=== PATIENT | female | born 1945 | race Caucasian/White ===

== ENCOUNTER 2019-09-07 10:42 | Outpatient (CLI) | payer OTHER, SELFPAY ==
[2019-09-07 11:03] LABS: Basophils Absolute Auto 0.2 K/mm3 (0.0-0.1); Basophils Percent Auto 2.5 % (0.2-1.2); Eosinophils Absolute Auto 0.5 K/mm3 (0-0.3); Eosinophils Percent Auto 5.3 % (0-4.4); Hematocrit 49.7 % (37.0-47.0); Hemoglobin 14.7 g/dL (12.0-15.0); Immature Granulocyte Absolute 0.02 K/mm3 (0.00-0.031); Immature Granulocyte Percent A 0.2 % (0-0.5); Lymphocytes Absolute Auto 1.92 K/mm3 (0.9-3.2); Lymphocytes Percent Auto 22.8 % (18.3-44.2); Mean Corpuscular HGB Conc 29.6 g/dl (32-36); Mean Corpuscular Hemoglobin 25.2 pg (26-34); Mean Corpuscular Volume 85.2 fl (80-100); Mean Platelet Volume 10.2 fl (7.4-10.4); Monocytes Absolute Auto 0.5 K/mm3 (0.1-0.6); Monocytes Percent Auto 5.8 % (2.6-8.5); Neutrophils Absolute Auto 5.3 K/mm3 (1.3-6.7); Neutrophils Percent Auto 63.4 % (45.5-73.1); Platelet Count Result 499 k/mm3 (150-375); Red Blood Count 5.83 M/mm3 (4.2-5.4); Red Cell Distribution Width 19.9 % (11.5-14.5); White Blood Count 8.4 K/mm3 (4.5-10.0)
[2019-09-07 11:06] LABS: Blood Urea Nitrogen 22 mg/dL (8-26); Carbon Dioxide 29 mmol/L (22-30); Chloride 100 mmol/L (98-109); Estimated Glomerular Filt Rate 30; Glucose 101 mg/dL (70-105); Potassium 4.5 mmol/L (3.5-4.9); Sodium 139 mmol/L (138-146)
[2019-09-07 11:08] LABS: Ovalocytes 1+ (NORMAL); Platelet Estimate Increased (Adequate); Poikilocytosis 1+ (NORMAL)
== END 2019-09-07 10:43 | disposition home or self-care (01) ==
LOC: ANHLAB 10:45
PROVIDERS: PCP Family Medicine; Visit Provider Internal Medicine Hematology & Oncology
DX: D45 Polycythemia vera (principal)
CPT/HCPCS: 36415; 80048; 85025

== ENCOUNTER 2019-12-21 00:59 | Outpatient (CLI) | payer OTHER, SELFPAY ==
[2019-12-21 19:35] LABS: SARS-CoV-2 RNA PCR Negative
== END 2019-12-21 01:00 | disposition home or self-care (01) ==
LOC: ANHCOVIDDT 00:59
PROVIDERS: PCP Family Medicine; Visit Provider Internal Medicine Gastroenterology
DX: Z01.812 Encounter for preprocedural laboratory examination (principal); Z11.59 Encounter for screening for other viral diseases
CPT/HCPCS: 87635; C9803; U0003

== ENCOUNTER 2019-12-23 01:38 | Day surgery (SDC) | payer OTHER, SELFPAY ==
[2019-12-20 09:39] VITALS: BMI 23.3
--- NOTE | 2019-12-23 08:28 | WPDANESEPPF ---
Anes - Initial Pre Proc Eval Procedure: Operation Date: 12/23/19 09:00 Proposed Procedures p Screening Colonoscopy - Avila Ortega MD Date/Time: 12/23/19 08:28 Surgeon: Avila Ortega MD Pre Op Diagnosis: neoplasm screening Patient Data Age: 74 Gender: F Height: 5 ft 1 in Weight: 56 kg Allergies Allergy/AdvReac Type Severity Reaction Status Date / Time codeine Allergy Unknown Hives Verified 12/23/19 08:33 Penicillins Allergy Unknown Hives Verified 12/23/19 08:33 Sulfa (Sulfonamide Allergy Unknown Confusion Verified 12/23/19 08:33 Antibiotics) TYLENOL WITH CODEINE Allergy Intermediate Hives Uncoded 12/23/19 08:33 Home Medications Medication Instructions Recorded Confirmed Type albuterol sulfate 90 mcg/actuation 1 puff INHALATION Q4H PRN 05/18/19 12/20/19 History aerosol inhaler atorvastatin 20 mg tablet 20 mg PO DAILY 05/18/19 12/20/19 History fluticasone 250 mcg-salmeterol 50 1 inhalation INHALATION BID 05/18/19 12/20/19 History mcg/dose blistr powdr for inhalation hydroxyurea 500 mg capsule 500 mg PO DAILY 05/18/19 12/20/19 History ipratropium 0.5 mg-albuterol 3 mg 3 ml INHALATION QID PRN 05/18/19 12/20/19 History (2.5 mg base)/3 mL nebulization soln promethazine 25 mg tablet 25 mg PO Q6H PRN 05/18/19 12/20/19 History betamethasone dipropionate 0.05 % 1 applic TOPICAL DAILY PRN #15 gm 05/21/19 12/20/19 Rx topical cream amlodipine 10 mg tablet 10 mg PO DAILY #90 tablet 07/22/19 12/20/19 Rx folic acid 1 mg tablet See Rx Instructions .ROUTE 11/22/19 12/20/19 Rx .COMPLEX #90 tablet levothyroxine 75 mcg tablet 75 mcg PO DAILY #90 tablet 11/23/19 12/20/19 Rx ondansetron 4 mg disintegrating 4 mg PO Q6H PRN #12 tablet 11/26/19 12/20/19 Rx tablet fenofibrate 160 mg tablet 160 mg PO DAILY #90 tablet 11/29/19 12/20/19 Rx lisinopril 40 mg tablet 40 mg PO DAILY #90 tablet 11/29/19 12/20/19 Rx aspirin 325 mg PO DAILY 12/20/19 12/20/19 History Patient hx anesthesia problems: none Family hx anesthesia problems: none PMFSH Past Medical History Medical History (Updated 12/23/19 @ 08:28 by Butch Friedman MD) Acquired hypothyroidism CKD (chronic kidney disease) COPD (chronic obstructive pulmonary disease) HTN (hypertension) Family History Family History (Updated 01/13/14 @ 07:13 by DOCTOR UNKNOWN) Mother Carcinoma of colon Father Family history of lung cancer Social History Social History Smoking status: Never smoker Second hand tobacco smoke exposure: Yes Alcohol intake: never Gender identity (if verbalized by the patient): Female Anes - Eval Final PreProcedure Day of Procedure 12/23/19 08:28 Patient weight: normal Heart: regular rate and rhythm Lungs: clear to auscultation Airway: Mallampati scale class II Neurological: alert and oriented Last oral intake: >/= 8 hours ASA classification: III Emergent: no Anesthetic plan: proceed Anesthesia type and monitoring: general GIVS and standard monitoring Informed Consent: The patient's anesthetic plan and its attendant risks and benefits were discussed with the patient/family/POA. Questions were solicited and answers provided to the satisfaction of the patient/family/POA.
[2019-12-23] MEDS: LACTATED RINGERS 1,000 ML 150 ML IV CONT (08:32)
[2019-12-23 08:34] VITALS: BP 151/79; PULSE 74; RESP 16; TEMP 36.4; O2SAT 98; BMI 23.2
--- NOTE | 2019-12-23 08:48 | PM.HPGS ---
History of Present Illness History of Present Illness Consent: Risks, benefits, and alternatives have been discussed and questions answered. Patient agrees to proceed with procedure. Chief complaint: neoplasm screening Narrative: Viviana Das is a 74 year old W female referred for screening colonoscopy secondary history of colonic polyps. Colonoscopy 5 years ago. No family history of colon polyps or colon cancer. [facility] Past Medical History Medical History Acquired hypothyroidism CKD (chronic kidney disease) COPD (chronic obstructive pulmonary disease) HTN (hypertension) Family History Family History Mother Carcinoma of colon Father Family history of lung cancer Social History Social History Smoking status: Never smoker Second hand tobacco smoke exposure: Yes Alcohol intake: never Gender identity (if verbalized by the patient): Female Meds Home Medications and Allergies Home Medications Medication Instructions Recorded Confirmed Type albuterol sulfate 90 mcg/actuation 1 puff INHALATION Q4H PRN 05/18/19 12/20/19 History aerosol inhaler atorvastatin 20 mg tablet 20 mg PO DAILY 05/18/19 12/20/19 History fluticasone 250 mcg-salmeterol 50 1 inhalation INHALATION BID 05/18/19 12/20/19 History mcg/dose blistr powdr for inhalation hydroxyurea 500 mg capsule 500 mg PO DAILY 05/18/19 12/20/19 History ipratropium 0.5 mg-albuterol 3 mg 3 ml INHALATION QID PRN 05/18/19 12/20/19 History (2.5 mg base)/3 mL nebulization soln promethazine 25 mg tablet 25 mg PO Q6H PRN 05/18/19 12/20/19 History betamethasone dipropionate 0.05 % 1 applic TOPICAL DAILY PRN #15 gm 05/21/19 12/20/19 Rx topical cream amlodipine 10 mg tablet 10 mg PO DAILY #90 tablet 07/22/19 12/20/19 Rx folic acid 1 mg tablet See Rx Instructions .ROUTE 11/22/19 12/20/19 Rx .COMPLEX #90 tablet levothyroxine 75 mcg tablet 75 mcg PO DAILY #90 tablet 11/23/19 12/20/19 Rx ondansetron 4 mg disintegrating 4 mg PO Q6H PRN #12 tablet 11/26/19 12/20/19 Rx tablet fenofibrate 160 mg tablet 160 mg PO DAILY #90 tablet 11/29/19 12/20/19 Rx lisinopril 40 mg tablet 40 mg PO DAILY #90 tablet 11/29/19 12/20/19 Rx aspirin 325 mg PO DAILY 12/20/19 12/20/19 History Allergies Allergy/AdvReac Type Severity Reaction Status Date / Time codeine Allergy Unknown Hives Verified 12/23/19 08:33 Penicillins Allergy Unknown Hives Verified 12/23/19 08:33 Sulfa (Sulfonamide Allergy Unknown Confusion Verified 12/23/19 08:33 Antibiotics) TYLENOL WITH CODEINE Allergy Intermediate Hives Uncoded 12/23/19 08:33 Vital Signs Vital Signs - 24 hr 12/23/19 08:34 Temperature 36.4 C L Pulse Rate 74 Respiratory Rate 16 Blood Pressure 151/79 H Pulse Oximetry 98 Exam Const: Orientation/consciousness: patient oriented x3 Resp: Auscultation: clear to auscultation bilaterally Cardio: Rate: regular rate Rhythm: regular rhythm Heart sounds: no murmurs GI: GI Palp: Yes Soft to palpation, No Tenderness to palpation present (GI), Yes No hepatosplenomegaly present and No Palpable mass present Auscultation: normal bowel sounds Neuro: General: patient oriented x3 and no focal motor deficits Extrem: General: no pedal edema Assessment and Plan Additional Plan Screening colonoscopy secondary history of colonic polyps
[2019-12-23 09:40] VITALS: BP 104/56; PULSE 67; RESP 19; O2SAT 97
[2019-12-23 09:50] VITALS: BP 102/58; PULSE 85; O2SAT 98
[2019-12-23 10:00] VITALS: BP 124/70; PULSE 68; RESP 20; O2SAT 99
== END 2019-12-23 10:20 | disposition home or self-care (01) ==
PROVIDERS: PCP Family Medicine; Visit Provider Internal Medicine Gastroenterology
PROC: 0DJD8ZZ Inspection of Lower Intestinal Tract, Via Natural or Artificial Opening Endoscopic (ICD-10-PCS; CPT 45378; principal; 2019-12-23 09:00)
DX: Z12.11 Encounter for screening for malignant neoplasm of colon (principal); D12.0 Benign neoplasm of cecum; K57.30 Diverticulosis of large intestine without perforation or abscess without bleeding; K64.8 Other hemorrhoids; I12.9 Hypertensive chronic kidney disease with stage 1 through stage 4 chronic kidney disease, or unspecified chronic kidney disease; N18.9 Chronic kidney disease, unspecified; J44.9 Chronic obstructive pulmonary disease, unspecified; E03.9 Hypothyroidism, unspecified; Z79.82 Long term (current) use of aspirin
CPT/HCPCS: 45380; 87635; 88305; C9803; J2704; J7120; U0003

== ENCOUNTER → 2020-01-13 10:08 | Outpatient (CLI) | payer OTHER, SELFPAY ==
--- NOTE | ~2020-01-13 | MM_ITS ---
EXAMINATION: MM screening [facility] BI w efra HISTORY: Screening mammogram TECHNIQUE: Craniocaudal and mediolateral oblique 3-D tomosynthesis images were obtained and synthetic 2-D images were generated. CAD analysis was submitted and interpreted. COMPARISON: 10/16/2018, 10/20/2017, 10/10/2017, 09/19/2016 BREAST PARENCHYMAL COMPOSITION: There are scattered areas of fibroglandular density. FINDINGS: There is no evidence of suspicious mass, calcification, or architectural distortion to sugg est malignancy in either breast. There has been no suspicious interval change. IMPRESSION: 1. No mammographic evidence of malignancy. 2. Recommend routine screening mammography in one year. BI-RADS Category 1: Negative Reviewed, dictated and finalized at location A.
== END ==
PROVIDERS: PCP Family Medicine; Visit Provider Family Medicine
DX: Z12.31 Encounter for screening mammogram for malignant neoplasm of breast (principal)
CPT/HCPCS: 77063; 77067

== ENCOUNTER → 2020-06-19 11:40 | Outpatient (CLI) | payer OTHER, SELFPAY ==
--- NOTE | ~2020-06-19 | CT_ITS ---
EXAMINATION: CT brain wo con EXAM DATE: 06/19/2020 11:57 INDICATION: Left-sided sharp headaches. Stabbing sensation. TECHNIQUE: Spiral CT of the head was performed without contrast. Axial, coronal and sagittal images were reviewed. The dose-length product (DLP) for this examination was 524.62 mGy-cm. The exposure w as tailored according to patient size, and iterative reconstruction (ASIR) was used as additional dos e reduction technique. There is no prior study for comparison. FINDINGS: There is no acute intraparenchymal hemorrhage. No evidence of intraparenchymal brain mass lesion. No evidence of acute infarction. Please note that initial head CT has limited sensitivity f or small or acute infarctions. There is mild periventricular and subcortical hypodensity, nonspecific but probably related to small vessel ischemic disease. There is mild prominence of the sulci and v entricles related to cerebral atrophy. There is intracranial carotid arteriosclerosis. There are n o extra-axial collections. There is no mass effect or midline shift. The orbits are unremarkable. Soft tissue is unremarkable. The visualized sinuses and mastoid air cells are well aerated. IMPRESSION: 1. No acute intracranial findings. 2. Chronic age related findings. Reviewed, dictated and finalized at location B. 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
== END ==
PROVIDERS: PCP Family Medicine; Visit Provider Physician Assistant
DX: R51.9 Headache, unspecified (principal); I67.2 Cerebral atherosclerosis
CPT/HCPCS: 70450

== ENCOUNTER 2020-07-06 11:06 | Outpatient (CLI) | payer OTHER, SELFPAY ==
[2020-07-06 11:35] LABS: Basophils Absolute Auto 0.2 K/mm3 (0.0-0.1); Basophils Percent Auto 1.7 % (0.2-1.2); Eosinophils Absolute Auto 0.3 K/mm3 (0-0.3); Eosinophils Percent Auto 3.5 % (0-4.4); Hematocrit 47.8 % (37.0-47.0); Hemoglobin 14.5 g/dL (12.0-15.0); Immature Granulocyte Absolute 0.03 K/mm3 (0.00-0.031); Immature Granulocyte Percent A 0.3 % (0-0.5); Lymphocytes Absolute Auto 1.84 K/mm3 (0.9-3.2); Lymphocytes Percent Auto 19.7 % (18.3-44.2); Mean Corpuscular HGB Conc 30.3 g/dl (32-36); Mean Corpuscular Hemoglobin 26.6 pg (26-34); Mean Corpuscular Volume 87.7 fl (80-100); Monocytes Absolute Auto 0.6 K/mm3 (0.1-0.6); Monocytes Percent Auto 6.1 % (2.6-8.5); Neutrophils Absolute Auto 6.4 K/mm3 (1.3-6.7); Neutrophils Percent Auto 68.7 % (45.5-73.1); Platelet Count Result 473 k/mm3 (150-375); Red Blood Count 5.45 M/mm3 (4.2-5.4); Red Cell Distribution Width 20.1 % (11.5-14.5); White Blood Count 9.3 K/mm3 (4.5-10.0)
[2020-07-06 11:50] LABS: Alanine Aminotransferase 14 U/L (4-35); Albumin Level 3.6 g/dL (3.5-5.1); Alkaline Phosphatase 45 U/L (38-126); Anion Gap 1 mmol/L (8-16); Aspartate Amino Transferase 31 U/L (14-36); Bilirubin,Total 0.4 mg/dL (0.2-1.3); Blood Urea Nitrogen 20 mg/dL (7-17); Calcium 9.2 mg/dL (8.4-10.2); Carbon Dioxide 34 mmol/L (22-30); Chloride 105 mmol/L (98-107); Estimated Glomerular Filt Rate 37; Glucose 106 mg/dL (65-105); Potassium 4.8 mmol/L (3.4-5.0); Sodium 140 mmol/L (137-145)
== END 2020-07-06 11:07 | disposition home or self-care (01) ==
LOC: ANHLAB 11:09
PROVIDERS: PCP Family Medicine; Visit Provider Physician Assistant
DX: N18.9 Chronic kidney disease, unspecified (principal); R10.9 Unspecified abdominal pain; R19.7 Diarrhea, unspecified
CPT/HCPCS: 36415; 80053; 85025

== ENCOUNTER 2021-02-16 11:59 | Outpatient (CLI) | payer OTHER, SELFPAY ==
[2021-02-16 12:55] LABS: Anion Gap 8 mmol/L (8-16); Blood Urea Nitrogen 21 mg/dL (7-17); Calcium 10.2 mg/dL (8.4-10.2); Carbon Dioxide 30 mmol/L (22-30); Chloride 100 mmol/L (98-107); Estimated Glomerular Filt Rate 49; Glucose 111 mg/dL (65-110); Sodium 138 mmol/L (137-145)
== END 2021-02-16 12:00 | disposition home or self-care (01) ==
PROVIDERS: PCP Family Medicine; Visit Provider Physician Assistant
DX: E87.5 Hyperkalemia (principal)
CPT/HCPCS: 36415; 80048

== ENCOUNTER → 2021-02-22 07:14 | Outpatient (CLI) | payer OTHER, SELFPAY ==
--- NOTE | ~2021-02-22 | MM_ITS ---
EXAMINATION: MM screening [facility] BI w efra HISTORY: Screening mammogram TECHNIQUE: Craniocaudal and mediolateral oblique 3-D tomosynthesis images were obtained and synthetic 2-D images were generated. CAD analysis was submitted and interpreted. COMPARISON: 01/13/2020, 10/16/2018 BREAST PARENCHYMAL COMPOSITION: There are scattered areas of fibroglandular density. FINDINGS: There is no evidence of suspicious mass, calcification, or architectural distortion to sugg est malignancy in either breast. There has been no suspicious interval change. IMPRESSION: 1. No mammographic evidence of malignancy. 2. Recommend routine screening mammography in one year. BI-RADS Category 1: Negative Reviewed, dictated and finalized at location A.
== END ==
PROVIDERS: PCP Family Medicine; Visit Provider Family Medicine
DX: Z12.31 Encounter for screening mammogram for malignant neoplasm of breast (principal)
CPT/HCPCS: 77063; 77067

== ENCOUNTER → 2021-06-26 01:51 | Outpatient (CLI) | payer OTHER, SELFPAY ==
[2021-06-26 17:21] LABS: SARS-CoV-2 RNA PCR Negative
== END ==
PROVIDERS: PCP Family Medicine; Visit Provider Nurse Practitioner Family
DX: Z20.822 Contact with and (suspected) exposure to COVID-19 (principal); R05.9 Cough, unspecified
CPT/HCPCS: C9803; U0003; U0005

== ENCOUNTER 2021-11-13 09:26 | Outpatient (CLI) | payer OTHER, SELFPAY ==
--- NOTE | ~2021-11-13 | XR_ITS ---
EXAMINATION: XR wrist RT 2V INDICATION: Right wrist pain TECHNIQUE: Two views of the right wrist are obtained. COMPARISON: None FINDINGS: There is moderate osteoarthritis of the triscaphe and first carpometacarpal joints. No frac ture is identified. The soft tissues are unremarkable. IMPRESSION: 1. Osteoarthritis without acute osseous abnormality. Reviewed, dictated and finalized at location A.
--- NOTE | ~2021-11-13 | XR_ITS ---
EXAMINATION: XR hand RT min 3V INDICATION: Right hand pain TECHNIQUE: Three views of the right hand are obtained. COMPARISON: None available FINDINGS: There is moderate osteoarthritis of the triscaphe and first carpometacarpal joints. There i s also moderate osteoarthritis at the first carpometacarpal joint as well as in multiple interphalang eal joints. No fracture is identified. The soft tissues are unremarkable. IMPRESSION: 1. Polyarticular osteoarthritis. Reviewed, dictated and finalized at location A.
== END 2021-11-13 09:27 | disposition home or self-care (01) ==
LOC: ANHIMG 09:30
PROVIDERS: PCP Family Medicine; Visit Provider Nurse Practitioner Family
DX: M19.041 Primary osteoarthritis, right hand (principal); M18.11 Unilateral primary osteoarthritis of first carpometacarpal joint, right hand; M19.031 Primary osteoarthritis, right wrist
CPT/HCPCS: 73100; 73130

== ENCOUNTER 2022-02-05 15:17 | Emergency (ER) | payer OTHER, SELFPAY ==
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
[2022-02-05 15:39] VITALS: BP 134/75; PULSE 94; RESP 20; TEMP 36.4; O2SAT 97
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
== END 2022-02-05 18:54 | disposition home or self-care (01) ==
PROVIDERS: Emergency Provider Nurse Practitioner Family; PCP Family Medicine
DX: S02.31XA Fracture of orbital floor, right side, initial encounter for closed fracture (principal); S00.11XA Contusion of right eyelid and periocular area, initial encounter; E03.9 Hypothyroidism, unspecified; I12.9 Hypertensive chronic kidney disease with stage 1 through stage 4 chronic kidney disease, or unspecified chronic kidney disease; N18.9 Chronic kidney disease, unspecified; J44.9 Chronic obstructive pulmonary disease, unspecified; Y04.0XXA Assault by unarmed brawl or fight, initial encounter
CPT/HCPCS: 70450; 70486; 99284

== ENCOUNTER → 2022-05-09 09:58 | Outpatient (CLI) | payer OTHER, SELFPAY ==
--- NOTE | ~2022-05-09 | MM_ITS ---
EXAMINATION: MM screening [facility] BI w efra HISTORY: Screening TECHNIQUE: Craniocaudal and mediolateral oblique 3-D tomosynthesis images were obtained and synthetic 2-D images were generated. CAD analysis was submitted and interpreted. COMPARISON: Comparison to multiple prior studies sequentially, with oldest reviewed study dated 08/2016. BREAST PARENCHYMAL COMPOSITION: Breast composed of scattered areas of fibroglandular density FINDINGS: There is no evidence of suspicious mass, calcification, or architectural distortion to sugg est malignancy in either breast. There has been no suspicious interval change. IMPRESSION: 1. No mammographic evidence of malignancy. 2. Recommend routine screening mammography in one year. BI-RADS Category 1: Negative Reviewed, dictated and finalized at location A. MAKER
--- NOTE | ~2022-05-09 | DEXA_ITS ---
Bone Density Report Name: PASHA KELLY Age: 76 Sex: Female Ethnicity: White Date of : 1945 Indication: osteopenia; height loss; cancer; postmenopausal Referring Provider: LAUREL MONTGOMERY Study: Bone densitometry was performed. Exam Date: May 09, 2022 Accession number: [id number] Bone Density: Region BMD T-score Z-score Classification AP Spine (L1-L4) 0.873 -1.6 0.8 Osteopenia Femoral Neck (Left) 0.700 -1.3 0.8 Osteopenia Total Hip (Left) 0.773 -1.4 0.4 Osteopenia Femoral Neck (Right) 0.618 -2.1 0.0 Osteopenia Total Hip (Right) 0.777 -1.4 0.4 Osteopenia Total Hip Mean 0.775 -1.4 0.4 Osteopenia World Health Organization criteria for BMD impression classify patients as: Normal (T-score at or above -1.0), Osteopenia (T-score between -1.0 and -2.5), or Osteoporosis (T-score at or below -2.5). 10-year Fracture Risk(1): Major Osteoporotic Fracture 13% Hip Fracture 3.5% Reported Risk Factors: [place] (), Neck BMD=0.618, BMI=24.0 (1) FRAX(R) Version 3.08. Fracture probability calculated for an untreated patient. Fracture probability may be lower if the patient has received treatment. Previous Exams: Region Exam Age BMD T-score BMD Change BMD Change Date g/cm2 vs Baseline vs Previous AP Spine(L1-L4) 05/09/2022 76 0.873 -1.6 0.048* -0.016 05/28/2019 73 0.889 -1.4 0.064* 0.064* 11/20/2016 70 0.824 -2.0 Total Hip(Left) 05/09/2022 76 0.773 -1.4 -0.011 0.008 05/28/2019 73 0.765 -1.5 -0.019 -0.019 11/20/2016 70 0.784 -1.3 Total Hip(Right) 05/09/2022 76 0.777 -1.4 -0.020 0.013 05/28/2019 73 0.764 -1.5 -0.032* -0.032* 11/20/2016 70 0.796 -1.2 *Denotes significance at 95% confidence level, LSC for AP Spine = 0.022 g/cm2, LSC for Total Hip = 0.027 g/cm2 Clinical Information Provided by Patient: Has used the following medications: Vitamin D, hydroxxurea (cancer medication) Has the following medical conditions: Cancer, high red blood cell count-takes cancer meds for this, COPD Patient maximum height was 63 Menopause Age: 37 Does not regularly consume dairy products Drinks caffeinated beverages Onset of menses at age 14 Number of children 4 Impression: The patient has low bone mass, based on the Right Femoral Neck T-score. The patient has an estimated ten-year risk of hip fra
== END ==
PROVIDERS: PCP Family Medicine; Visit Provider Physician Assistant
DX: Z12.31 Encounter for screening mammogram for malignant neoplasm of breast (principal); Z78.0 Asymptomatic menopausal state; M85.89 Other specified disorders of bone density and structure, multiple sites
CPT/HCPCS: 77063; 77067; 77080

== ENCOUNTER → 2022-06-20 11:27 | Outpatient (CLI) | payer OTHER, SELFPAY ==
--- NOTE | ~2022-06-20 | XR_ITS ---
EXAMINATION: XR chest 2V DATE: 06/20/2022 11:43 INDICATION: Cough, unspecified TECHNIQUE: PA and lateral views of the chest are obtained. COMPARISON: None available FINDINGS: There is a nodular opacity of the right lung base. No pleural effusion or pneumothorax. The cardiomediastinal silhouette is normal. There is moderate thoracic spondylosis. IMPRESSION: 1. Nodular opacity of the right lung base which may be infectious or inflammatory however malignancy could've a similar appearance. Follow-up with CT of the chest is recommended. Reviewed, dictated and finalized at location L. T MONITOR IMPRESSION: 1. Nodular opacity of the right lung base which may be infectious or inflammato ry however malignancy could've a similar appearance. Follow-up with CT of the c hest is recommended.
== END ==
PROVIDERS: PCP Family Medicine; Visit Provider Physician Assistant
DX: R05.9 Cough, unspecified (principal); R91.1 Solitary pulmonary nodule
CPT/HCPCS: 71046

== ENCOUNTER 2022-06-25 10:14 | Outpatient (CLI) | payer OTHER, SELFPAY ==
[2022-06-25 11:15] LABS: Influenza A QL RT-PCR Negative (Negative); Influenza B QL RT-PCR Negative (Negative); SARS-CoV-2 RNA PCR Negative
== END 2022-06-25 10:15 | disposition home or self-care (01) ==
LOC: ANHLAB 10:15
PROVIDERS: PCP Family Medicine; Visit Provider Physician Assistant
DX: R53.83 Other fatigue (principal); R51.9 Headache, unspecified; R11.0 Nausea; Z20.822 Contact with and (suspected) exposure to COVID-19
CPT/HCPCS: 87636

== ENCOUNTER 2022-07-05 09:48 | Outpatient (CLI) | payer OTHER, SELFPAY ==
--- NOTE | ~2022-07-05 | CT_ITS ---
EXAMINATION: CT diagnostic chest wo con DATE: 07/05/2022 10:12 INDICATION: Chest x-ray abnormality follow-up TECHNIQUE: Computed tomography (CT) of the chest was performed without intravenous contrast. The dose -length product was 137.29 mGy-cm. Automated exposure control and iterative reconstruction technique were employed. COMPARISON: Chest x-ray dated 06/20/2022 FINDINGS: Heart size normal. No significant pleural or pericardial effusion. Mild atherosclerosis. Th ere is esophageal wall thickening, suspicious for esophagitis. Gallstones. No thoracic lymphadenopath y. There are subtle infiltrates of the right lung including areas of groundglass opacification, tree- in-bud configuration and atelectasis. There is a 3 mm lingular nodule, image 66, likely benign. No pn eumothorax. No endobronchial lesions. Moderate thoracic spondylosis. No focal lytic or blastic lesion s. IMPRESSION: 1. Patchy infiltrates of the right lung, most likely infectious. 2: Diffuse thickening of the esophagus, suspicious for esophagitis. 3: Lingular nodule measuring 3 mm, likely benign. Consider follow-up CT chest and 12 months. 4: Cholelithiasis. Reviewed, dictated and finalized at location A. 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 Patchy infiltrates of the right lung, most likely infectious. 2: Diffuse thickening of the esophagus, suspicious for esophagitis. 3: Lingular nodule measuring 3 mm, likely benign. Consider follow-up CT chest a nd 12 months. 4: Cholelithiasis.
== END 2022-07-05 09:49 | disposition home or self-care (01) ==
PROVIDERS: PCP Family Medicine; Visit Provider Physician Assistant
DX: J44.9 Chronic obstructive pulmonary disease, unspecified (principal); K80.20 Calculus of gallbladder without cholecystitis without obstruction; R91.1 Solitary pulmonary nodule; R91.8 Other nonspecific abnormal finding of lung field
CPT/HCPCS: 71250; 99195

== ENCOUNTER 2022-08-16 08:26 | Outpatient (CLI) | payer OTHER, SELFPAY ==
--- NOTE | ~2022-08-16 | CT_ITS ---
CT Scan of the Chest without Contrast: Clinical Indication: Abnormal CT scan Technique: Contiguous sections were acquired throughout the chest without intravenous contrast. Dose reduction technique was used on this scan by utilizing automated exposure control and iterative recon struction technique. The dose-length product (DLP) was 123.99 mGy-cm. COMPARISON: 07/05/2022 Findings: There is no evidence of any significant mediastinal, hilar or axillary lymphadenopathy. There are mil d atherosclerotic calcifications of the aorta. There is no evidence of pleural or pericardial effusion. Scattered focal areas of tree-in-bud opacity or other subcentimeter nodularity, as well as focal area s of probable scarring, are unchanged from prior exam. There are most notable in the right upper lobe (axial images 26 and 27), in the left lower lobe (axial images [id number]), and right lower lobe (axial im age 72). Images through the upper abdomen reveal calcified gallstone. Impression: Scattered focal pulmonary abnormalities, as noted above, which are stable from prior exam. Findings p robably reflect chronic postinflammatory change/scarring and/or chronic small airways infectious proc ess. Reviewed, dictated and finalized at location M. Impression: Scattered focal pulmonary abnormalities, as noted above, which are stable from prior exam. Findings probably reflect chronic postinflammatory change/scarring and/or chronic small airways infectious process.
== END 2022-08-16 08:27 | disposition home or self-care (01) ==
PROVIDERS: PCP Family Medicine; Visit Provider Physician Assistant
DX: R93.89 Abnormal findings on diagnostic imaging of other specified body structures (principal); R05.9 Cough, unspecified
CPT/HCPCS: 71250

== ENCOUNTER 2023-03-20 09:31 | Outpatient (CLI) | payer OTHER, SELFPAY | END 2023-03-20 09:32 | disposition home or self-care (01) | LOC: ANHLAB 09:36 | PROVIDERS: PCP Family Medicine; Visit Provider Physician Assistant | DX: E03.9 Hypothyroidism, unspecified (principal) | CPT/HCPCS: 36415; 84443 ==

== ENCOUNTER 2023-06-19 11:17 | Outpatient (CLI) | payer OTHER, SELFPAY ==
--- NOTE | ~2023-06-19 | MM_ITS ---
EXAMINATION: MM screening [facility] BI w efra HISTORY: Screening TECHNIQUE: Craniocaudal and mediolateral oblique 3-D tomosynthesis images were obtained and synthetic 2-D images were generated. CAD analysis was submitted and interpreted. COMPARISON: Comparison to multiple prior studies sequentially, with oldest reviewed study dated 10/10. BREAST PARENCHYMAL COMPOSITION: Not dense: There are scattered areas of fibroglandular density. FINDINGS: There is no evidence of suspicious mass, calcification, or architectural distortion to sugg est malignancy in either breast. There has been no suspicious interval change. IMPRESSION: 1. No mammographic evidence of malignancy. 2. Recommend routine screening mammography in one year. BI-RADS Category 1: Negative Reviewed, dictated and finalized at location A. 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
== END 2023-06-19 11:18 ==
LOC: MICIMG 11:18
PROVIDERS: PCP Physician Assistant; Visit Provider Physician Assistant
DX: Z12.31 Encounter for screening mammogram for malignant neoplasm of breast (principal)
CPT/HCPCS: 77063; 77067

== ENCOUNTER 2023-07-15 15:53 | Outpatient (CLI) | payer OTHER, SELFPAY ==
--- NOTE | ~2023-07-15 | CT_ITS ---
CT Scan of the Chest without Contrast: Clinical Indication: Nonspecific abnormal finding of lung field Technique: Contiguous sections were acquired throughout the chest without intravenous contrast. Dose reduction technique was used on this scan by utilizing automated exposure control and iterative recon struction technique. The dose-length product (DLP) was 125.54 mGy-cm. COMPARISON: 08/16/2022 Findings: There is no evidence of any significant mediastinal, hilar or axillary lymphadenopathy. The mediastin al soft tissues appear normal. There is no evidence of pleural or pericardial effusion. Stable subcentimeter nodules noted in the left upper lobe and left lower lobe. Images through the upper abdomen reveal calcified gallstone. Impression: Stable subcentimeter pulmonary nodules in the left lung. Reviewed, dictated and finalized at [facility]. S S[facility]ER [employer]T Impression: Stable subcentimeter pulmonary nodules in the left lung.
== END 2023-07-15 15:54 | disposition home or self-care (01) ==
PROVIDERS: PCP Family Medicine; Visit Provider Physician Assistant
DX: R91.8 Other nonspecific abnormal finding of lung field (principal)
CPT/HCPCS: 71250

== ENCOUNTER 2023-08-23 10:08 | Emergency (ER) | payer OTHER, SELFPAY ==
[2023-08-23] VITALS (11 sets, daily range): BP systolic 129–151; BP diastolic 71–81; PULSE 81–89; RESP 14–23; TEMP 36.2–36.7; O2SAT 96–100
--- NOTE | ~2023-08-23 | CT_ITS ---
EXAMINATION: CT abdomen pelvis wo con DATE: 08/23/2023 11:00 INDICATION: Intermittent abdominal pain. Nausea and vomiting. Acute kidney injury. TECHNIQUE: Computed tomography (CT) of the abdomen and pelvis was performed without intravenous contr ast. Automated exposure control and iterative reconstruction technique were employed. Exam dose: 199 .53 mGy-cm total exam DLP. COMPARISON: No prior examinations available from PACS for comparison. FINDINGS: The lung bases are clear of infiltrate or consolidation. Normal heart size. No pericardial or pleural effusion. Small sliding hiatal hernia. There is an approximately 9.5 mm stone in the dependent aspect of the gallbladder. No pericholecystic fluid or fat stranding. No bile duct or pancreatic duct dilatation. No hepatic, splenic, pancreatic, and adrenal or renal space-occupying mass lesion is evident on this limited noncontrast examination. There is a pinpoint nonobstructing right renal calculus. There is atherosclerotic calcification but normal caliber of the abdominal aorta. 12 x 14 mm left ext ernal iliac lymph node; otherwise no intraperitoneal or retroperitoneal or pelvic mass lesion or angeal opathy or ascites. The uterus, adnexal areas and urinary bladder are unremarkable. There are numerous colonic diverticula, primarily involving the sigmoid:; No CT evidence of diverticu litis. No bowel obstruction, bowel wall thickening, pneumatosis or intraperitoneal free air. Transitional lumbosacral vertebral. Multilevel degenerative disc disease of the lumbar spine. No suspicious osteolytic or osteoblastic lesions are noted. IMPRESSION: Small sliding hiatal hernia Cholelithiasis Diverticulosis of the colon; no evidence of diverticulitis Reviewed, dictated and finalized at [facility]. Reviewed, dictated and finalized at location A.
[2023-08-23] MEDS: ONDANSETRON INJ 4 MG/2 ML VIAL IV PUSH (11:07)
[2023-08-23] MEDS: SODIUM CHLORIDE 0.9% IV 1,000 ML 999 ML IV CONT (11:07)
[2023-08-23 11:16] LABS: Basophils Absolute Auto 0.1 K/mm3 (0.0-0.1); Basophils Percent Auto 1.7 % (0.2-1.2); Eosinophils Absolute Auto 0.1 K/mm3 (0-0.3); Eosinophils Percent Auto 1.5 % (0-4.4); Hematocrit 48.8 % (37.0-47.0); Hemoglobin 15.4 g/dL (12.0-15.0); Immature Granulocyte Absolute 0.05 K/mm3 (0.00-0.031); Immature Granulocyte Percent A 0.6 % (0-0.5); Lymphocytes Absolute Auto 1.71 K/mm3 (0.9-3.2); Mean Corpuscular HGB Conc 31.6 g/dl (32-36); Mean Corpuscular Hemoglobin 32.6 pg (26-34); Mean Corpuscular Volume 103.4 fl (80-100); Mean Platelet Volume 12.5 fl (7.4-10.4); Monocytes Absolute Auto 0.3 K/mm3 (0.1-0.6); Monocytes Percent Auto 3.9 % (2.6-8.5); Neutrophils Absolute Auto 5.8 K/mm3 (1.3-6.7); Neutrophils Percent Auto 71.3 % (45.5-73.1); Platelet Count Result 253 k/mm3 (150-375); Red Blood Count 4.72 M/mm3 (4.2-5.4); Red Cell Distribution Width 16.5 % (11.5-14.5); White Blood Count 8.1 K/mm3 (4.5-10.0)
--- NOTE | 2023-08-23 11:17 | ECG_ITS ---
Measurements Intervals [place] Rate: 89 P: 63 CT: 157 QRS: -34 QRSD: 120 T: 72 QT: 342 Avg RR: 669 QTc: 389 QTcB: 418 QTcF: 391 Interpretive Statements SINUS RHYTHM WITH OCCASIONAL VENTRICULAR PREMATURE COMPLEXES WITH OCCASIONAL SUPRAVENTRICULAR PREMATURE COMPLEXES MARKED LEFT AXIS DEVIATION [QRS AXIS < -30] ANTEROSEPTAL MYOCARDIAL INFARCTION, OF INDETERMINATE AGE [40+ ms Q WAVE IN V1-V4] ABNORMAL ECG SEE SCANNED COPY FOR SIGNATURE MTDD
--- NOTE | 2023-08-23 11:27 | ED.GENADULT ---
HPI - General Adult General Chief complaint: Recheck/Abnormal Lab/Rx <Valentin Shepherd PA-C - Last Filed: 08/23/23 17:33> Stated complaint: ABN LABS <Valentin Shepherd PA-C - Last Filed: 08/23/23 17:33> Time Seen by Provider: 08/23/23 10:29 <Valentin Shepherd PA-C - Last Filed: 08/23/23 17:33> Source: patient <NGOC Sewell Last Filed: 08/23/23 17:33> Mode of arrival: ambulatory <NGOC Sewell Last Filed: 08/23/23 17:33> Limitations: no limitations <NGOC Sewell Last Filed: 08/23/23 17:33> History of Present Illness HPI narrative: This is a 77-year-old female with PMH of COPD, HTN, hypothyroid, CKD who presents to the ED with chief complaint of abnormal lab draw from PCP this week. Patient states that she has been dealing with intermittent nausea and vomiting for the past several weeks. She reports it is very difficult to keep any food down. This prompted her PCP did order labs and imaging. Reports that she got the labs done and was told to come to the ER for significant dehydration and impaired kidney function. Patient states that she has some abdominal pain when vomiting but otherwise has minimal abdominal pain. Denies GI bleeding symptoms, fevers, chills, diarrhea, urinary symptoms, back pain. <Valentin Shepherd PA-C - Last Filed: 08/23/23 17:33> Related Data Home medications: Home Medications Medication Instructions Recorded Confirmed ipratropium 0.5 mg-albuterol 3 mg 3 ml inhalation QID PRN Shortness 05/18/19 08/21/23 (2.5 mg base)/3 mL nebulization Of Breath soln aspirin 325 mg tablet 325 mg PO DAILY 12/20/19 08/21/23 hydroxyurea 500 mg capsule 500 mg PO .ever other day 08/06/22 08/21/23 <NGOC Sewell Last Filed: 08/23/23 17:33> Allergies/adverse reactions: Allergies Allergy/AdvReac Type Severity Reaction Status Date / Time codeine Allergy Unknown Hives Verified 08/23/23 10:26 Penicillins Allergy Unknown Hives Verified 08/23/23 10:26 Sulfa (Sulfonamide Allergy Unknown Confusion Verified 08/23/23 10:26 Antibiotics) guaifenesin [From Mucinex] AdvReac Intermediate Dizziness Verified 08/23/23 10:26 TYLENOL WITH CODEINE Allergy Intermediate Hives Uncoded 08/21/23 14:53 <Valentin Shepherd PA-C - Last Filed: 08/23/23 17:33> Review of Systems Review of Systems: All systems as dictated in HPI <NGOC Sewell Last Filed: 08/23/23 17:33> [facility] Past Medical History Medical History: Medical History Acquired hypothyroidism CKD (chronic kidney disease) COPD (chronic obstructive pulmonary disease) HTN (hypertension) <NGOC Sewell Last Filed: 08/23/23 17:33> Family History Family History: Family History Mother Carcinoma of colon Father Family history of lung cancer <Valentin Shepherd PA-C - Last Filed: 08/23/23 17:33> Social History Social History: Social History Social History: Single Smoking status: Never smoker Second hand tobacco smoke exposure: Yes Alcohol intake: never Substance use: never Substance use type: does not use Living arrangements: alone Occupation/Education: occupation Gender identity (if verbalized by the patient): Female Sexual Orientation (if Verbalized by the Patient): Straight or Heterosexual Spiritual care concerns: No <NGOC Sewell Last Filed: 08/23/23 17:33> Exam Narrative: GENERAL: Appears dehydrated. No acute distress. HEAD: Normocephalic, atraumatic. EYES: PERRLA and EOMI. ENT: Nares clear, no rhinorrhea or epistaxis. Mucous membranes moist. Oropharynx without tonsillar hypertrophy exudate or other lesions. NECK: Supple. No adenopathy or masses. CHEST: No respiratory distress. Clear to auscultation. No wheezes rales or rhonchi HEART: Regular rate and rhythm
[2023-08-23 11:55] LABS: Alanine Aminotransferase 12 U/L (6-35); Albumin Level 3.2 g/dL (3.5-5.1); Alkaline Phosphatase 49 U/L (38-126); Anion Gap 0 mmol/L (4-12); Aspartate Amino Transferase 26 U/L (14-36); Bilirubin,Total 0.6 mg/dL (0.2-1.3); Blood Urea Nitrogen 30 mg/dL (7-17); Calcium 11.9 mg/dL (8.4-10.2); Carbon Dioxide 31 mmol/L (22-30); Chloride 106 mmol/L (98-107); Estimated CRCL calculation 14 ml/min; Estimated Glomerular Filt Rate 20; Glucose 96 mg/dL (65-110); Lipase 58 U/L (23-300); Phosphorus 2.8 mg/dL (2.5-4.5); Potassium 3.8 mmol/L (3.4-5.0); Sodium 137 mmol/L (137-145)
[2023-08-23 12:09] LABS: Magnesium 1.8 mg/dL (1.6-2.3)
[2023-08-23 13:04] LABS: Anion Gap 3 mmol/L (4-12); Blood Urea Nitrogen 32 mg/dL (7-17); Calcium 12.6 mg/dL (8.4-10.2); Carbon Dioxide 30 mmol/L (22-30); Chloride 105 mmol/L (98-107); Estimated CRCL calculation 14 ml/min; Estimated Glomerular Filt Rate 20; Glucose 95 mg/dL (65-110); Sodium 138 mmol/L (137-145)
--- NOTE | 2023-08-23 13:18 | PC.NURSE ---
PO challenge tolerated well.
[2023-08-26 10:00] LABS: Ionized Calcium 6.2 mg/dL (4.7-5.5)
[2023-09-09 15:28] LABS: Parathyroid Hormone Related Pr 12 pg/mL (11-20)
== END 2023-08-23 14:34 | disposition home or self-care (01) ==
PROVIDERS: Emergency Provider Physician Assistant; PCP Family Medicine
DX: E86.0 Dehydration (principal); E83.52 Hypercalcemia; J44.9 Chronic obstructive pulmonary disease, unspecified; I12.9 Hypertensive chronic kidney disease with stage 1 through stage 4 chronic kidney disease, or unspecified chronic kidney disease; N18.9 Chronic kidney disease, unspecified; E03.9 Hypothyroidism, unspecified; Z79.82 Long term (current) use of aspirin
CPT/HCPCS: 36415; 74176; 80048; 80053; 82330; 83519; 83690; 83735; 84100; 85025; 93005; 96361; 96374; 99284; J2405; J7030

== ENCOUNTER 2023-08-26 00:53 | Day surgery (SDC) | payer OTHER, SELFPAY ==
[2023-08-21 14:57] VITALS: BMI 22.3
--- NOTE | 2023-08-22 09:58 | SUR.PREOP ---
Patient called regarding upcoming procedure. Reviewed preop instructions, appointment times, and procedure prep.
[2023-08-26 07:43] VITALS: BP 135/75; PULSE 80; RESP 16; TEMP 36.1; O2SAT 97
[2023-08-26] MEDS: ONDANSETRON INJ 4 MG/2 ML VIAL IV PUSH (07:59)
[2023-08-26] MEDS: LACTATED RINGERS 1,000 ML 150 ML IV CONT (08:00)
--- NOTE | 2023-08-26 08:15 | WPDANESEPPF ---
Anes - Initial Pre Proc Eval Procedure: Operation Date: 08/26/23 09:00 Proposed Procedures p Esophagogastroduodenoscopy - Estevan Malik MD Date/Time: 08/26/23 08:15 Surgeon: Estevan Malik MD Pre Op Diagnosis: Dysphagia, GERD, abd. distension, N&V Patient Data Age: 77 Gender: F Height: 1.55 m Weight: 53.4 kg Last Vital Signs Temp 97 F L 08/26/23 07:43 Pulse 80 08/26/23 07:43 Resp 16 08/26/23 07:43 BP 135/75 08/26/23 07:43 Pulse Ox 97 08/26/23 07:43 O2 Del Method Room Air 08/26/23 07:43 Allergies Allergy/AdvReac Type Severity Reaction Status Date / Time codeine Allergy Unknown Hives Verified 08/26/23 07:41 Penicillins Allergy Unknown Hives Verified 08/26/23 07:41 Sulfa (Sulfonamide Allergy Unknown Confusion Verified 08/26/23 07:41 Antibiotics) guaifenesin [From Mucinex] AdvReac Intermediate Dizziness Verified 08/26/23 07:41 TYLENOL WITH CODEINE Allergy Intermediate Hives Uncoded 08/26/23 07:41 Home Medications Medication Instructions Recorded Confirmed Type ipratropium 0.5 mg-albuterol 3 mg 3 ml inhalation QID PRN Shortness 05/18/19 08/21/23 History (2.5 mg base)/3 mL nebulization Of Breath soln aspirin 325 mg tablet 325 mg PO DAILY 12/20/19 08/21/23 History betamethasone dipropionate 0.05 % 1 applic topical DAILY PRN rash 02/02/21 08/21/23 Rx topical cream #15 grams albuterol sulfate 90 mcg/actuation 1 puff inhalation Q4H PRN 08/06/22 08/21/23 Rx aerosol inhaler Shortness Of Breath #8.5 grams hydroxyurea 500 mg capsule 500 mg PO .ever other day 08/06/22 08/21/23 History levothyroxine 75 mcg tablet See Rx Instructions .Route 12/09/22 08/26/23 Rx .COMPLEX #90 tabs fenofibrate 160 mg tablet See Rx Instructions .Route 01/16/23 08/21/23 Rx .COMPLEX #90 tabs lisinopril 40 mg tablet See Rx Instructions .Route 02/06/23 08/21/23 Rx .COMPLEX #90 tabs amlodipine 10 mg tablet See Rx Instructions .Route 03/03/23 08/21/23 Rx .COMPLEX #90 tabs atorvastatin 20 mg tablet (Lipitor) 20 mg PO DAILY #90 tabs 06/03/23 08/21/23 Rx fluticasone 250 mcg-salmeterol 50 See Rx Instructions .Route 07/22/23 08/21/23 Rx mcg/dose blistr powdr for .COMPLEX #60 ea inhalation (Wixela Inhub) folic acid 1 mg tablet See Rx Instructions .Route 07/25/23 08/21/23 Rx .COMPLEX #90 tabs omeprazole 40 mg capsule,delayed See Rx Instructions .Route 08/19/23 08/21/23 Rx release .COMPLEX #90 caps ondansetron 4 mg disintegrating 4 mg PO Q6H PRN nausea and 08/19/23 08/21/23 Rx tablet vomiting #30 tabs ondansetron 4 mg disintegrating 4 mg PO Q8H PRN nausea and 08/23/23 Rx tablet vomiting #10 tabs Patient hx anesthesia problems: none Family hx anesthesia problems: none Results Review: All pre-operative results and documents have been reviewed as part of the pre-operative evaluation. [facility] Past Medical History Medical History Acquired hypothyroidism CKD (chronic kidney disease) COPD (chronic obstructive pulmonary disease) HTN (hypertension) Family History Family History Mother Carcinoma of colon Father Family history of lung cancer Social History Social History Social History: Single Smoking status: Never smoker Second hand tobacco smoke exposure: Yes Alcohol intake: never Substance use: never Substance use type: does not use Living arrangements: alone Occupation/Education: occupation Gender identity (if verbalized by the patient): Female Sexual Orientation (if Verbalized by the Patient): Straight or Heterosexual Spiritual care concerns: No Anes - Eval Final PreProcedure Day of Procedure 08/26/23 08:15 Patient weight: normal Heart: regular rate and rhythm Lungs: clear to auscultation Airway: Mallampati scale class II Neurological: alert and or
--- NOTE | 2023-08-26 08:37 | PM.HPGS ---
History of Present Illness History of Present Illness Consent: Risks, benefits, and alternatives have been discussed and questions answered. Patient agrees to proceed with procedure. Chief complaint: Dysphagia, GERD, abd. distension, N&V Narrative: Viviana Das is a 77 year old female with intermittent nausea and vomiting since July, recent blood workt noted worsening renal failure with hypercalcemia, also h/o polycythemia. CT scan showed cholelithiasis, small HH, never had egd. Review of Systems Review of Systems: All systems reviewed & are unremarkable except as noted in HPI and below PMFSH Past Medical History Medical History (Updated 08/26/23 @ 08:38 by Estevan Malik MD) Acquired hypothyroidism CKD (chronic kidney disease) COPD (chronic obstructive pulmonary disease) HTN (hypertension) Nausea and vomiting in adult Family History Family History Mother Carcinoma of colon Father Family history of lung cancer Social History Social History Social History: Single Smoking status: Never smoker Second hand tobacco smoke exposure: Yes Alcohol intake: never Substance use: never Substance use type: does not use Living arrangements: alone Occupation/Education: occupation Gender identity (if verbalized by the patient): Female Sexual Orientation (if Verbalized by the Patient): Straight or Heterosexual Spiritual care concerns: No Meds Home Medications and Allergies Home Medications Medication Instructions Recorded Confirmed Type ipratropium 0.5 mg-albuterol 3 mg 3 ml inhalation QID PRN Shortness 05/18/19 08/21/23 History (2.5 mg base)/3 mL nebulization Of Breath soln aspirin 325 mg tablet 325 mg PO DAILY 12/20/19 08/21/23 History betamethasone dipropionate 0.05 % 1 applic topical DAILY PRN rash 02/02/21 08/21/23 Rx topical cream #15 grams albuterol sulfate 90 mcg/actuation 1 puff inhalation Q4H PRN 08/06/22 08/21/23 Rx aerosol inhaler Shortness Of Breath #8.5 grams hydroxyurea 500 mg capsule 500 mg PO .ever other day 08/06/22 08/21/23 History levothyroxine 75 mcg tablet See Rx Instructions .Route 12/09/22 08/26/23 Rx .COMPLEX #90 tabs fenofibrate 160 mg tablet See Rx Instructions .Route 01/16/23 08/21/23 Rx .COMPLEX #90 tabs lisinopril 40 mg tablet See Rx Instructions .Route 02/06/23 08/21/23 Rx .COMPLEX #90 tabs amlodipine 10 mg tablet See Rx Instructions .Route 03/03/23 08/21/23 Rx .COMPLEX #90 tabs atorvastatin 20 mg tablet (Lipitor) 20 mg PO DAILY #90 tabs 06/03/23 08/21/23 Rx fluticasone 250 mcg-salmeterol 50 See Rx Instructions .Route 07/22/23 08/21/23 Rx mcg/dose blistr powdr for .COMPLEX #60 ea inhalation (Wixela Inhub) folic acid 1 mg tablet See Rx Instructions .Route 07/25/23 08/21/23 Rx .COMPLEX #90 tabs omeprazole 40 mg capsule,delayed See Rx Instructions .Route 08/19/23 08/21/23 Rx release .COMPLEX #90 caps ondansetron 4 mg disintegrating 4 mg PO Q6H PRN nausea and 08/19/23 08/21/23 Rx tablet vomiting #30 tabs ondansetron 4 mg disintegrating 4 mg PO Q8H PRN nausea and 08/23/23 Rx tablet vomiting #10 tabs Allergies Allergy/AdvReac Type Severity Reaction Status Date / Time codeine Allergy Unknown Hives Verified 08/26/23 07:41 Penicillins Allergy Unknown Hives Verified 08/26/23 07:41 Sulfa (Sulfonamide Allergy Unknown Confusion Verified 08/26/23 07:41 Antibiotics) guaifenesin [From Mucinex] AdvReac Intermediate Dizziness Verified 08/26/23 07:41 TYLENOL WITH CODEINE Allergy Intermediate Hives Uncoded 08/26/23 07:41 Vital Signs Vital Signs - 24 hr 08/26/23 07:43 Temperature 97 F L Pulse Rate 80 Respiratory Rate 16 Blood Pressure 135/75 Pulse Oximetry 97 Oxygen Delivery Room Air Exam Const: General: comfortable and no acute distress HENMT: Face/Nose/Sinus: Normal nares present Eyes:
[2023-08-26 08:54] VITALS: BP 115/71; PULSE 66; RESP 16; O2SAT 98
[2023-08-26 09:04] VITALS: BP 110/61; PULSE 62; RESP 16; O2SAT 100
[2023-08-26 09:14] VITALS: BP 127/66; PULSE 57; RESP 16; O2SAT 100
== END 2023-08-26 09:20 | disposition home or self-care (01) ==
PROVIDERS: PCP Family Medicine; Referring Provider Physician Assistant; Visit Provider Internal Medicine Gastroenterology
PROC: 0DJ08ZZ Inspection of Upper Intestinal Tract, Via Natural or Artificial Opening Endoscopic (ICD-10-PCS; CPT 43235; principal; 2023-08-26 09:00)
DX: K21.00 Gastro-esophageal reflux disease with esophagitis, without bleeding (principal); K22.2 Esophageal obstruction; K29.70 Gastritis, unspecified, without bleeding; K44.9 Diaphragmatic hernia without obstruction or gangrene; I12.9 Hypertensive chronic kidney disease with stage 1 through stage 4 chronic kidney disease, or unspecified chronic kidney disease; N18.30 Chronic kidney disease, stage 3 unspecified; D75.1 Secondary polycythemia; E83.52 Hypercalcemia; E03.9 Hypothyroidism, unspecified; Z79.51 Long term (current) use of inhaled steroids
CPT/HCPCS: 43249; 43239; 88305; C1726; J2405; J2704; J7120

== ENCOUNTER 2023-09-04 14:31 | Outpatient (CLI) | payer OTHER, SELFPAY ==
[2023-09-04 14:49] LABS: Basophils Absolute Auto 0.1 K/mm3 (0.0-0.1); Eosinophils Absolute Auto 0.2 K/mm3 (0-0.3); Eosinophils Percent Auto 2.3 % (0-4.4); Hematocrit 47.1 % (37.0-47.0); Hemoglobin 14.9 g/dL (12.0-15.0); Immature Granulocyte Absolute 0.04 K/mm3 (0.00-0.031); Immature Granulocyte Percent A 0.6 % (0-0.5); Lymphocytes Percent Auto 24.4 % (18.3-44.2); Mean Corpuscular HGB Conc 31.6 g/dl (32-36); Mean Corpuscular Hemoglobin 32.7 pg (26-34); Mean Corpuscular Volume 103.3 fl (80-100); Mean Platelet Volume 10.5 fl (7.4-10.4); Monocytes Absolute Auto 0.4 K/mm3 (0.1-0.6); Monocytes Percent Auto 5.3 % (2.6-8.5); Neutrophils Absolute Auto 4.6 K/mm3 (1.3-6.7); Neutrophils Percent Auto 65.4 % (45.5-73.1); Platelet Count Result 366 k/mm3 (150-375); Red Blood Count 4.56 M/mm3 (4.2-5.4); Red Cell Distribution Width 17.4 % (11.5-14.5)
[2023-09-04 16:21] LABS: Alanine Aminotransferase 15 U/L (6-35); Albumin Level 3.9 g/dL (3.5-5.1); Alkaline Phosphatase 55 U/L (38-126); Anion Gap 3 mmol/L (4-12); Aspartate Amino Transferase 34 U/L (14-36); Bilirubin,Total 0.6 mg/dL (0.2-1.3); Blood Urea Nitrogen 23 mg/dL (7-17); Calcium 10.4 mg/dL (8.4-10.2); Carbon Dioxide 30 mmol/L (22-30); Chloride 103 mmol/L (98-107); Estimated Glomerular Filt Rate 37; Glucose 99 mg/dL (65-110); Potassium 4.4 mmol/L (3.4-5.0); Sodium 136 mmol/L (137-145)
== END 2023-09-04 14:32 | disposition home or self-care (01) ==
LOC: ANHLAB 14:34
PROVIDERS: PCP Family Medicine; Visit Provider Physician Assistant
DX: E83.52 Hypercalcemia (principal); E86.0 Dehydration; N17.9 Acute kidney failure, unspecified; R11.2 Nausea with vomiting, unspecified; I10 Essential (primary) hypertension
CPT/HCPCS: 36415; 80053; 85025

== ENCOUNTER 2023-09-11 07:57 | Outpatient (CLI) | payer OTHER, SELFPAY ==
--- NOTE | ~2023-09-11 | NM_ITS ---
EXAMINATION: NM parathyroid imaging w spect DATE: 09/11/2023 12:39 INDICATION: Hypercalcemia TECHNIQUE: 19.1 mCi Tc99m sestamibi (Cardiolite) was administered by intravenous route. Anterior imag es of the neck were obtained at 10 minutes and 2 hours. Additional 2 hour delayed SPECT images were o btained and reconstructed in axial, sagittal and coronal planes. COMPARISON: None. FINDINGS/IMPRESSION: There is no focus of persistent activity in the area of the thyroid or mediastinum to suggest parathy roid adenoma. Reviewed, dictated and finalized at location A.
== END 2023-09-11 07:58 | disposition home or self-care (01) ==
PROVIDERS: PCP Family Medicine; Visit Provider Physician Assistant
DX: E83.52 Hypercalcemia (principal)
CPT/HCPCS: 78071; A9500

== ENCOUNTER 2023-10-08 14:57 | Outpatient (CLI) | payer OTHER, SELFPAY ==
--- NOTE | ~2023-10-08 | US_ITS ---
EXAMINATION: US renal BI DATE: 10/08/2023 15:56 INDICATION: Stage IIIB chronic kidney disease TECHNIQUE: Multiple ultrasound grayscale images of the kidneys were obtained. COMPARISON: CT dated 08/23/2023 FINDINGS: The right kidney measures 8.8 x 4.2 x 4.9 cm. The left kidney measures 8.9 x 4.2 x 4.3 cm. There is b ilateral increased renal cortical echogenicity consistent with medical renal disease. 1.3 cm cyst at the lower pole of the right kidney. There is no hydronephrosis in either kidney. No stones identifie d. The bladder is normal. IMPRESSION: 1. Bilateral increased renal cortical echogenicity consistent with medical renal disease. No hydrone phrosis. Reviewed, dictated and finalized at location A. IMPRESSION: 1. Bilateral increased renal cortical echogenicity consistent with medical norman al disease. No hydronephrosis.
== END 2023-10-08 14:58 | disposition home or self-care (01) ==
PROVIDERS: PCP Family Medicine; Visit Provider Internal Medicine Nephrology
DX: E83.52 Hypercalcemia (principal); N18.32 Chronic kidney disease, stage 3b
CPT/HCPCS: 76775

== ENCOUNTER 2023-12-02 01:56 | Day surgery (SDC) | payer OTHER, SELFPAY ==
[2023-11-17 14:19] VITALS: BMI 21.5
[2023-12-02 07:44] VITALS: BP 131/92; PULSE 84; RESP 16; TEMP 36.3; O2SAT 98; BMI 22.0
[2023-12-02] MEDS: LACTATED RINGERS 1,000 ML 150 ML IV CONT (07:53)
--- NOTE | 2023-12-02 07:55 | WPDANESEPPF ---
Anes - Initial Pre Proc Eval Procedure: Operation Date: 12/02/23 09:00 Proposed Procedures p Esophagogastroduodenoscopy - Estevan Malik MD Date/Time: 12/02/23 07:55 Surgeon: Estevan Malik MD Pre Op Diagnosis: Esophagitis without bleeding, Esophageal obstructi Patient Data Age: 78 Gender: F Height: 1.57 m Weight: 54.6 kg Last Vital Signs Temp 97.3 F L 12/02/23 07:44 Pulse 84 12/02/23 07:44 Resp 16 12/02/23 07:44 BP 131/92 H 12/02/23 07:44 Pulse Ox 98 12/02/23 07:44 O2 Del Method Room Air 12/02/23 07:44 Allergies Allergy/AdvReac Type Severity Reaction Status Date / Time codeine Allergy Unknown Hives Verified 12/02/23 07:43 Penicillins Allergy Unknown Hives Verified 12/02/23 07:43 Sulfa (Sulfonamide Allergy Unknown Confusion Verified 12/02/23 07:43 Antibiotics) guaifenesin [From Mucinex] AdvReac Intermediate Dizziness Verified 12/02/23 07:43 TYLENOL WITH CODEINE Allergy Intermediate Hives Uncoded 12/02/23 07:43 Home Medications Medication Instructions Recorded Confirmed Type aspirin 325 mg tablet 325 mg PO DAILY 12/20/19 12/02/23 History albuterol sulfate 90 mcg/actuation 1 puff inhalation Q4H PRN 08/06/22 12/02/23 Rx aerosol inhaler Shortness Of Breath #8.5 grams hydroxyurea 500 mg capsule 500 mg PO .ever other day 08/06/22 12/02/23 History fluticasone 250 mcg-salmeterol 50 See Rx Instructions .Route 07/22/23 12/02/23 Rx mcg/dose blistr powdr for .COMPLEX #60 ea inhalation (Joce Bryan) folic acid 1 mg tablet See Rx Instructions .Route 07/25/23 12/02/23 Rx .COMPLEX #90 tabs omeprazole 40 mg capsule,delayed 40 mg PO BID 3 months #180 caps 08/26/23 12/02/23 Rx release levothyroxine 75 mcg tablet See Rx Instructions .Route 08/29/23 12/02/23 Rx .COMPLEX #90 tabs ondansetron 4 mg disintegrating 4 mg PO Q6H PRN nausea and 09/18/23 12/02/23 Rx tablet vomiting #30 tabs fenofibrate 160 mg tablet See Rx Instructions .Route 10/07/23 12/02/23 Rx .COMPLEX #90 tabs lisinopril 40 mg tablet See Rx Instructions .Route 10/27/23 12/02/23 Rx .COMPLEX #90 tabs amlodipine 10 mg tablet See Rx Instructions .Route 11/19/23 12/02/23 Rx .COMPLEX #90 tabs atorvastatin 20 mg tablet (Lipitor) 20 mg PO DAILY #90 tabs 11/24/23 12/02/23 Rx Patient hx anesthesia problems: none Family hx anesthesia problems: none Results Review: All pre-operative results and documents have been reviewed as part of the pre-operative evaluation. [facility] Past Medical History Medical History Acquired hypothyroidism CKD (chronic kidney disease) COPD (chronic obstructive pulmonary disease) Esophagitis HTN (hypertension) Nausea and vomiting in adult Family History Family History Mother Carcinoma of colon Father Family history of lung cancer Social History Social History Social History: Single Smoking status: Never smoker Second hand tobacco smoke exposure: Yes Alcohol intake: never Substance use: never Substance use type: does not use Do You Feel Safe in your Home?: Yes Lack of Transportation: No Lack of Food: Never True Current Housing: I Have Housing Concerned About Future Housing: No Difficulty Paying Gas/Electric Bills: No Difficulty Paying for Meds: No Currently Unemployed: No Education: High School Diploma/GED Difficulty w/ Childcare or Family Care: No Living arrangements: alone Occupation/Education: occupation Gender identity (if verbalized by the patient): Female Sexual Orientation (if Verbalized by the Patient): Straight or Heterosexual Spiritual care concerns: No Anes - Eval Final PreProcedure Day of Procedure 12/02/23 07:55 Patient weight: normal Heart: regular rate and rhythm Lungs: clear to auscultation Airway:
--- NOTE | 2023-12-02 08:27 | PM.HPGS ---
History of Present Illness History of Present Illness Consent: Risks, benefits, and alternatives have been discussed and questions answered. Patient agrees to proceed with procedure. Chief complaint: Esophagitis without bleeding, Esophageal obstructi Narrative: Viviana Das is a 78 year old female with esophageal ring dilated up to 15 mm 08/2023 also had erosive esophagitis, symptoms improved with ppi bid, still sensation of food getting caught but overall improved. Review of Systems Review of Systems: All systems reviewed & are unremarkable except as noted in HPI and below PMFSH Past Medical History Medical History (Updated 12/02/23 @ 08:28 by Estevan Malik MD) Acquired hypothyroidism CKD (chronic kidney disease) COPD (chronic obstructive pulmonary disease) Dysphagia Esophagitis HTN (hypertension) Nausea and vomiting in adult Family History Family History Mother Carcinoma of colon Father Family history of lung cancer Social History Social History Social History: Single Smoking status: Never smoker Second hand tobacco smoke exposure: Yes Alcohol intake: never Substance use: never Substance use type: does not use Do You Feel Safe in your Home?: Yes Lack of Transportation: No Lack of Food: Never True Current Housing: I Have Housing Concerned About Future Housing: No Difficulty Paying Gas/Electric Bills: No Difficulty Paying for Meds: No Currently Unemployed: No Education: High School Diploma/GED Difficulty w/ Childcare or Family Care: No Living arrangements: alone Occupation/Education: occupation Gender identity (if verbalized by the patient): Female Sexual Orientation (if Verbalized by the Patient): Straight or Heterosexual Spiritual care concerns: No Meds Home Medications and Allergies Home Medications Medication Instructions Recorded Confirmed Type aspirin 325 mg tablet 325 mg PO DAILY 12/20/19 12/02/23 History albuterol sulfate 90 mcg/actuation 1 puff inhalation Q4H PRN 08/06/22 12/02/23 Rx aerosol inhaler Shortness Of Breath #8.5 grams hydroxyurea 500 mg capsule 500 mg PO .ever other day 08/06/22 12/02/23 History fluticasone 250 mcg-salmeterol 50 See Rx Instructions .Route 07/22/23 12/02/23 Rx mcg/dose blistr powdr for .COMPLEX #60 ea inhalation (Wixela Inhub) folic acid 1 mg tablet See Rx Instructions .Route 07/25/23 12/02/23 Rx .COMPLEX #90 tabs omeprazole 40 mg capsule,delayed 40 mg PO BID 3 months #180 caps 08/26/23 12/02/23 Rx release levothyroxine 75 mcg tablet See Rx Instructions .Route 08/29/23 12/02/23 Rx .COMPLEX #90 tabs ondansetron 4 mg disintegrating 4 mg PO Q6H PRN nausea and 09/18/23 12/02/23 Rx tablet vomiting #30 tabs fenofibrate 160 mg tablet See Rx Instructions .Route 10/07/23 12/02/23 Rx .COMPLEX #90 tabs lisinopril 40 mg tablet See Rx Instructions .Route 10/27/23 12/02/23 Rx .COMPLEX #90 tabs amlodipine 10 mg tablet See Rx Instructions .Route 11/19/23 12/02/23 Rx .COMPLEX #90 tabs atorvastatin 20 mg tablet (Lipitor) 20 mg PO DAILY #90 tabs 11/24/23 12/02/23 Rx Allergies Allergy/AdvReac Type Severity Reaction Status Date / Time codeine Allergy Unknown Hives Verified 12/02/23 07:43 Penicillins Allergy Unknown Hives Verified 12/02/23 07:43 Sulfa (Sulfonamide Allergy Unknown Confusion Verified 12/02/23 07:43 Antibiotics) guaifenesin [From Mucinex] AdvReac Intermediate Dizziness Verified 12/02/23 07:43 TYLENOL WITH CODEINE Allergy Intermediate Hives Uncoded 12/02/23 07:43 Vital Signs Vital Signs - 24 hr 12/02/23 07:44 Temperature 97.3 F L Pulse Rate 84 Respiratory Rate 16 Blood Pressure 131/92 H Pulse Oximetry 98 Oxygen Delivery Room Air Exam Const: General: comfortable and no acute distress HENMT: Face/Nose/Sinus: Normal nares present Eye
[2023-12-02 08:45] VITALS: BP 95/54; PULSE 73; RESP 25; O2SAT 100
[2023-12-02 08:55] VITALS: BP 113/68; PULSE 71; RESP 24; O2SAT 100
[2023-12-02 09:05] VITALS: BP 114/66; PULSE 69; RESP 25; O2SAT 99
== END 2023-12-02 09:11 | disposition home or self-care (01) ==
PROVIDERS: PCP Family Medicine; Visit Provider Internal Medicine Gastroenterology
PROC: 0DJ08ZZ Inspection of Upper Intestinal Tract, Via Natural or Artificial Opening Endoscopic (ICD-10-PCS; CPT 43235; principal; 2023-12-02 09:00)
DX: K22.2 Esophageal obstruction (principal); K21.00 Gastro-esophageal reflux disease with esophagitis, without bleeding; K31.A14 Gastric intestinal metaplasia without dysplasia, involving the cardia; K44.9 Diaphragmatic hernia without obstruction or gangrene; I12.9 Hypertensive chronic kidney disease with stage 1 through stage 4 chronic kidney disease, or unspecified chronic kidney disease; N18.9 Chronic kidney disease, unspecified; E03.9 Hypothyroidism, unspecified; J44.9 Chronic obstructive pulmonary disease, unspecified; Z79.51 Long term (current) use of inhaled steroids; Z79.82 Long term (current) use of aspirin
CPT/HCPCS: 43249; 88305; C1726; J7120

== ENCOUNTER 2024-01-22 10:33 | Outpatient (CLI) | payer OTHER, SELFPAY ==
[2024-01-22 11:46] LABS: Influenza A QL RT-PCR Negative (Negative); Influenza B QL RT-PCR Negative (Negative); SARS-CoV-2 RNA PCR Negative (Negative)
== END 2024-01-22 10:34 | disposition home or self-care (01) ==
LOC: ANHLAB 10:36
PROVIDERS: PCP Family Medicine; Visit Provider Physician Assistant
DX: J06.9 Acute upper respiratory infection, unspecified (principal); Z20.822 Contact with and (suspected) exposure to COVID-19
CPT/HCPCS: 87636

== ENCOUNTER 2024-02-17 07:16 | Outpatient (CLI) | payer OTHER, SELFPAY ==
--- NOTE | ~2024-02-17 | CT_ITS ---
Non-contrast CT scan of the Abdomen and Pelvis Clinical indication: Abdominal pain Technique: 2.5 mm axial scans were obtained through the abdomen and pelvis without intravenous or or al contrast. Dose reduction technique was used on this scan by utilizing automated exposure control a nd iterative reconstruction technique. The dose-length product (DLP) was 204.03 mGy-cm. COMPARISON: 08/23/2023 Findings: Images through the lung bases reveal no abnormalities. There is no evidence of renal or ureteral calculi. The kidneys and the ureters are nondilated. The liver, spleen, pancreas, and adrenals appear normal. Calcified gallstone present. There are ather osclerotic calcifications of the aorta. There is no evidence of bowel obstruction. Images through the pelvis were performed. There is no evidence of ascites or lymphadenopathy. Urinary bladder unremarkable. No pelvic mass seen. Impression: No acute abnormality. Cholelithiasis. Reviewed, dictated and finalized at [facility]. Impression: No acute abnormality. Cholelithiasis.
[2024-02-17 07:40] LABS: Estimated Glomerular Filt Rate 24
== END 2024-02-17 07:17 | disposition home or self-care (01) ==
PROVIDERS: PCP Family Medicine; Visit Provider Physician Assistant
DX: R10.31 Right lower quadrant pain (principal); R19.8 Other specified symptoms and signs involving the digestive system and abdomen; K80.20 Calculus of gallbladder without cholecystitis without obstruction
CPT/HCPCS: 74176

== ENCOUNTER 2024-02-18 08:20 | Outpatient (CLI) | payer OTHER, SELFPAY ==
[2024-02-18 09:27] LABS: Basophils Absolute Auto 0.1 K/mm3 (0.0-0.1); Basophils Percent Auto 2.5 % (0.2-1.2); Eosinophils Absolute Auto 0.2 K/mm3 (0-0.3); Eosinophils Percent Auto 3.3 % (0-4.4); Hematocrit 47.2 % (37.0-47.0); Hemoglobin 13.9 g/dL (12.0-15.0); Immature Granulocyte Absolute 0.03 K/mm3 (0.00-0.031); Immature Granulocyte Percent A 0.6 % (0-0.5); Immature Platelet Fraction Pct 6.3 % (0.9-11.2); Lymphocytes Absolute Auto 1.56 K/mm3 (0.9-3.2); Mean Corpuscular HGB Conc 29.4 g/dl (32-36); Mean Corpuscular Hemoglobin 26.3 pg (26-34); Mean Corpuscular Volume 89.2 fl (80-100); Mean Platelet Volume 11.2 fl (7.4-10.4); Monocytes Absolute Auto 0.2 K/mm3 (0.1-0.6); Monocytes Percent Auto 4.5 % (2.6-8.5); Neutrophils Absolute Auto 2.8 K/mm3 (1.3-6.7); Neutrophils Percent Auto 57.1 % (45.5-73.1); Platelet Count Result 266 k/mm3 (150-375); Red Blood Count 5.29 M/mm3 (4.2-5.4); Red Cell Distribution Width 24.6 % (11.5-14.5); White Blood Count 4.9 K/mm3 (4.5-10.0)
[2024-02-18 09:40] LABS: Alanine Aminotransferase 13 U/L (6-35); Albumin Level 3.6 g/dL (3.5-5.1); Alkaline Phosphatase 54 U/L (38-126); Anion Gap 4 mmol/L (4-12); Aspartate Amino Transferase 33 U/L (14-36); Bilirubin,Total 0.7 mg/dL (0.2-1.3); Blood Urea Nitrogen 16 mg/dL (7-17); Calcium 9.1 mg/dL (8.4-10.2); Carbon Dioxide 31 mmol/L (22-30); Chloride 102 mmol/L (98-107); Estimated Glomerular Filt Rate 48; Glucose 79 mg/dL (65-110); Potassium 4.4 mmol/L (3.4-5.0); Sodium 137 mmol/L (137-145)
[2024-02-18 09:54] LABS: Anisocytosis 2+; Hypochromasia 1+; Platelet Estimate Adequate (Adequate); Poikilocytosis 1+; Schistocytes None Seen
== END 2024-02-18 08:21 | disposition home or self-care (01) ==
PROVIDERS: PCP Family Medicine; Visit Provider Family Medicine
DX: R10.31 Right lower quadrant pain (principal); R11.2 Nausea with vomiting, unspecified; R19.8 Other specified symptoms and signs involving the digestive system and abdomen
CPT/HCPCS: 36415; 80053; 85025; 85055

== ENCOUNTER 2024-02-23 09:44 | Outpatient (CLI) | payer OTHER, SELFPAY ==
[2024-02-28 20:19] LABS: Calprotectin, Stool 189 mcg/g
== END 2024-02-23 09:45 | disposition home or self-care (01) ==
LOC: ANHLAB 09:45
PROVIDERS: PCP Family Medicine; Visit Provider Nurse Practitioner Family
DX: R10.31 Right lower quadrant pain (principal)
CPT/HCPCS: 83993

== ENCOUNTER 2024-03-04 07:11 | Outpatient (CLI) | payer OTHER, SELFPAY ==
--- NOTE | ~2024-03-04 | NM_ITS ---
EXAM: NM gastric emptying study DATE: 03/04/2024 12:10 INDICATION: Nausea with vomiting TECHNIQUE: A gastric emptying study was performed using the methodology of Elijah PASTOR, et al. J Nucl Med 2007; 48:568-572. The patient was given a meal consisting of 2 scrambled eggs labeled with 1.059 mCi Tc-99m sulfur colloid, 2 slices of toast, two packages of jam, and approximately 120 mL of water . Simultaneous anterior and posterior 1-min images of the abdomen were obtained with the patient supi ne at multiple time points over a total period of 4 hours. The geometric mean of anterior and posteri or views was determined, and the percentage retention was calculated for each time point. COMPARISON: None. FINDINGS: Gastric retention of the radiotracer-labeled meal was 46%, 26%, and 21% at the 1-hour, 2-hour, and 4- hour time points, respectively. With this technique, apparent rapid gastric emptying is suggested by <30% gastric retention at 1 hour. Delayed gastric emptying is defined by gastric retention of >90% at 1 hour, >60% retention at 2 hours, or >10% retention at 4 hours. IMPRESSION: 1. Delayed gastric emptying. Reviewed, dictated and finalized at location A.
== END 2024-03-04 07:12 | disposition home or self-care (01) ==
PROVIDERS: PCP Family Medicine; Visit Provider Nurse Practitioner Family
DX: R11.2 Nausea with vomiting, unspecified (principal); K30 Functional dyspepsia
CPT/HCPCS: 78264; A9541

== ENCOUNTER 2024-09-28 09:14 | Outpatient (CLI) | payer OTHER, SELFPAY ==
--- NOTE | ~2024-09-28 | DEXA_ITS ---
Bone Density Report Name: PASHA KELLY Age: 78 Sex: Female Ethnicity: White Date of : 1945 Indication: osteopenia; height loss; Referring Provider: LAUREL MONTGOMERY Study: Bone densitometry was performed. Exam Date: September 28, 2024 Accession number: [id number] Bone Density: Region BMD T-score Z-score Classification AP Spine(L1-L4) 0.915 -1.2 1.4 Osteopenia Femoral Neck (Left) 0.589 -2.3 -0.1 Osteopenia Total Hip (Left) 0.777 -1.4 0.6 Osteopenia Femoral Neck (Right) 0.600 -2.2 0.0 Osteopenia Total Hip (Right) 0.813 -1.1 0.9 Osteopenia Total Hip Mean 0.795 -1.3 0.8 Osteopenia World Health Organization criteria for BMD impression classify patients as: Normal (T-score at or above -1.0), Osteopenia (T-score between -1.0 and -2.5), or Osteoporosis (T-score at or below -2.5). 10-year Fracture Risk(1): Major Osteoporotic Fracture 15% Hip Fracture 4.7% Reported Risk Factors: [place] (), Neck BMD=0.589, BMI=22.5 (1) FRAX(R) Version 3.08. Fracture probability calculated for an untreated patient. Fracture probability may be lower if the patient has received treatment. Previous Exams: Region Exam Age BMD T-score BMD Change BMD Change Date g/cm2 vs Baseline vs Previous AP Spine (L1-L4) 09/28/2024 78 0.915 -1.2 0.085 (10.2%)* 0.085 (10.2%)* 11/15/2014 68 0.830 -2.0 Total Hip(Left) 09/28/2024 78 0.777 -1.4 -0.039 (-4.8%) -0.039 (-4.8%) 11/15/2014 68 0.816 -1.0 Total Hip(Right) 09/28/2024 78 0.813 -1.1 -0.039 (-4.6%) -0.039 (-4.6%) 11/15/2014 68 0.853 -0.7 *Denotes significance at 95% confidence level, LSC for AP Spine = 0.022 g/cm2, LSC for Total Hip = 0.027 g/cm2 Clinical Information Provided by Patient: Has used the following medications: Vitamin D, Calcium Patient maximum height was 63 Menopause Age: 46 Drinks caffeinated beverages Onset of menses at age 13 Number of children 4 Impression: The patient has low bone mass, based on the Left Femoral Neck T-score. The patient has an estimated ten-year risk of hip fracture of 4.7% and an estimated ten-year risk of major fracture of 15%, based on the WHO FRAX algorithm. The BMD for the Total Hip(Left) decreased, changing by -4.8% since the last DXA exam. The BMD for the Total Hip(Right) decreased, changing by -4.6% since the last DXA exam. Discussion: BONE DENSITY IS LOW AT ONE OR MORE SKELETAL SITES. THE PATIENT'S BMD AND CLINICAL RISK FACTORS CONTRIBUTE TO THIS PATIENT'S INCREASED RISK OF FRACTURE. This patient's lowest T-score is low at one or more skeletal sites. It meets the World Health Organization's (WHO) criteria for “low bone mass” (T-score between -1.0 and -2.5). The patient's 10-year risk of hip fracture as calculated by FRAX exceeds the threshold where pharmacological therapy is recommended by the National Osteoporosis Foundation (NOF). However, all treatment decisions require clinical judgment and consideration of individual patient factors, including patient preferences, comorbidities, previous drug use, risk factors not captured in the FRAX model (e.g., frailty, falls, vitamin D deficiency, increased bone turnover, interval significant decline in bone density) and possible under or overestimation of fracture risk by FRAX. The patient should follow a healthful lifestyle (good nutrition with adequate calcium and vitamin D, and appropriate weight-bearing exercise). Follow-Up: Consider a repeat BMD and Vertebral Fracture Assessment (VFA) exam in 2 years or sooner if medically necessary, to reassess this patient's status. Reported by: PATTY on 09/28/2024 9:59:00 AM. Reviewed, dictated and finalized at location A.
--- OUTSIDE RECORDS SUMMARY | 2024-09-28 09:25 | XMS_ITS | Clinical Summary ---
Author Organization [facility] Address [address] [place] [address] Care Team Providers Care Four Roll Calender Operator Name Role Phone Kirit Keys MD Primary Care Provider [phone] Allergies Active Allergy Reactions Criticality Noted Date Comments Codeine Swelling Low 02/05/2017 Penicillins Swelling Low 02/05/2017 Sulfa (Sulfonamide Antibiotics) Swelling Low 01/18 Medications folic acid (FOLVITE) 1 mg tablet Take 1 mg by mouth daily. Active atorvastatin (LIPITOR) 20 mg tablet Take 20 mg by mouth late in the day. Active fenofibrate (LOFIBRA) 160 mg Tablet Take 160 mg by mouth daily. Active lisinopril (PRINIVIL) 30 mg tablet Take 40 mg by mouth daily . Active amLODIPine (NORVASC) 10 mg tablet Take 10 mg by mouth daily. Active albuterol HFA 90 mcg inhaler Take 2 Puffs by inhalation every 6 hours as needed for Shortness of Breath. Active fluticasone-salme terol (ADVAIR DISKUS) 100-50 mcg/dose disk inhaler Take 1 Puff by inhalation 2 times daily. Active NACL INH/NEBULIZER (VIALIZER NEBULIZER KIT INHALATION) Take by inhalation every 4 hours . Active levothyroxine 75 mcg tablet Take 75 mcg by mouth daily ham smoker. Active allopurinoL (ZYLOPRIM) 300 mg tablet Take 1 Tablet (300 mg) by mouth daily. 30 Tablet 3 9 Active betamethasone dipropionate (DIPROSONE) 0.05 % Cream 0 Active doxycycline hyclate (VIBRAMYCIN) 100 mg tablet 1 Active lisinopriL (PRINIVIL) 40 mg tablet TAKE 1 TABLET BY MOUTH EVERY DAY 1 Active methylPREDNISolon e (MEDROL DOSPACK) 4 mg Tablets, Dose Pack 2 Active hydroxyurea (HYDREA) 500 mg capsule Take 1 capsule by mouth every other day. 30 Capsule 3 3 Active omeprazole (PriLOSEC) 40 mg Capsule, Delayed Release(E.C.) Take 1 Capsule by mouth 2 times daily. 4 Active ondansetron (ZOFRAN ODT) 4 mg Tablet, Rapid Dissolve Take 4 mg by mouth every 6 hours as needed. 4 Active hydroxyurea (HYDREA) 500 mg capsule TAKE 1 CAPSULE BY MOUTH EVERY DAY 90 Capsule 1 4 Active Active Problems Problem Noted Date Diagnosed Date Chronic obstructive pulmonary disease 06/07/2019 Primary thrombocytosis 07/23/2018 Erythrocytosis 02/05/2017 tobacco smoke expo sure (20wks gestation-4wks post ) 02/05/2017 Encounters Date Type Department Care Team Description 07/09/2024 10:15 AM ROSTER CLERK Office Visit [facility] Oncology and Hematology [facility] [address] [place] [address] Yusef Tariq MD Primary thrombocytosis (CMS/HCC) (Primary Dx) 07/09/2024 Orders Only [facility] Oncology and Hematology [facility] [address] [place] [address] Yusef Tariq MD from Last 3 Months Family History Medical History Relation Name Comments Lung Cancer Father Colon Cancer Mother Healthy Sister 1 Healthy Sister 2 Healthy Sister 3 Relation Name Status Comments Father Mother Sister 1 Alive Sister 2 Alive Sister 3 Alive Social History Tobacco Use Types Packs/Day Years Used Date Smoking Tobacco: Never Passive Smoke Exposure: Yes Tobacco Cessation:Counseling Given: Not Answered Alcohol Use Standard Drinks/Week Comments Yes 2 (1 standard drink = 0.6 oz pur e alcohol) Comments No Sex and Gender Information Value Date Recorded Sex Assigned at Not on file Legal Sex Female 11:24 AM CDT Gender Identity Not on file Sexual Orientation Not on file Last Filed Vital Signs Vital Sign Reading Time Taken Comments Blood Pressure 123/69 07/09/2024 10:11 AM ROSTER CLERK Pulse 89 07/09/2024 10:11 AM ROSTER CLERK Temperature 36.6 C (97.8 F) 07/09/2024 10:11 AM ROSTER CLERK Respiratory Rate 15 07/09/2024 10:11 AM ROSTER CLERK Oxygen Saturation 96% 07/09/2024 10:11 AM ROSTER CLERK Inhaled Oxygen Concentration - - Weight 52.2 kg (115 lb) 07/09/2024 10:11 AM ROSTER CLERK Height 152.4 cm (5') 03/13/2022 10:17 AM CDT Body Mass Index 22.46 03/13/2022 10:17 AM CDT Plan of Treatment Upcoming Encounters Date Type Department Care Team (Late st Contact Info) Description 11/09/2024 11:00 AM CDT Office Visit [facility] Oncology and Hematology - Ja [address] [facility] [address] [place] [address] Yusef Tariq MD [address] [facility] [address] [place] [address] Health Maintenance Due Date Last Done Comments DTAP/TDAP/TD VACCINES (1 - Tdap) 1964 PNEUMOCOCCAL VACCINE 50+ YEARS (1 of 2 - PCV) 11/27/18 67 ZOSTER VACCINE (1 of 2) 1996 OSTEOPOROSIS SCREENING 11/28/2011 RSV VACCINE (60+ or ) (1 - 1-dose 75+ series) 2021 INFLUENZA VACCINE (#1) 2023 Procedures Procedure Name Priority Date/Time Associated Diagnosis Comments BASIC METABOLIC PANEL Routine 07/09/2024 12:07 PM ROSTER CLERK CBC WITH AUTODIFFERENTIAL Routine 2024 11:52 AM ROSTER CLERK from Last 3 Months Results * BASIC METABOLIC PANEL (07/09/2024 12:07 PM ROSTER CLERK) Blood Yusef Tariq MD CHEMISTRY ORDERABLES Final Resu lt * CBC WITH AUTODIFFERENTIAL (07/09/2024 11:52 AM ROSTER CLERK) Blood us Yusef Tariq MD HEMATOLOGY ORDERABLES Final Res ult from Last 3 Months Insurance Care Teams Four Roll Calender Operator Relationship Specialty Start Date End Date Kirit Keys MD [address] [facility] [address] [address] PCP - General Family Practice 02/05/17
== END 2024-09-28 09:15 | disposition home or self-care (01) ==
PROVIDERS: PCP Family Medicine; Visit Provider Physician Assistant
DX: M85.89 Other specified disorders of bone density and structure, multiple sites (principal); Z78.0 Asymptomatic menopausal state
CPT/HCPCS: 77080

== ENCOUNTER 2024-10-22 08:54 | Outpatient (CLI) | payer OTHER, SELFPAY ==
--- NOTE | 2024-10-22 09:00 | ECG_ITS ---
Test Date: 2024-10-22 09:16:42 Measurements Intervals [place] Rate: 79 P: 74 AK: 138 QRS: -38 QRSD: 109 T: 55 QT: 351 QTc: 404 Interpretive Statements SINUS RHYTHM LEFT AXIS DEVIATION LOW QRS VOLTAGE IN PRECORDIAL LEADS ANTEROSEPTAL INFARCT, AGE INDETERMINATE INFERIOR INFARCT, AGE INDETERMINATE BASELINE ARTIFACT- I, III, AVR, AVL, AVF, V1-V6 ABNORMAL ECG No previous ECG available for comparison Electronically Signed On 10-22-2024 09:21:43 CDT by Melecio Howard D.O.
--- OUTSIDE RECORDS SUMMARY | 2024-10-22 09:02 | XMS_ITS | Clinical Summary ---
Author Organization [facility] Address [address] [place] [address] Care Team Providers Care Airline Reservation Agent Name Role Phone Kirit Keys MD Primary Care Provider [phone] Allergies Active Allergy Reactions Criticality Noted Date [...] tablet Take 75 mcg by mouth daily dual hose cementer. Active allopurinoL (ZYLOPRIM) 300 mg tablet Take [...] expo sure (20wks gestation-4wks post ) 02/05/2017 Family History Medical History Relation Name Comments [...] Comments Blood Pressure 123/69 07/09/2024 10:11 AM RESIDENT PHYSICIAN Pulse 89 07/09/2024 10:11 AM RESIDENT PHYSICIAN Temperature 36.6 C (97.8 F) 07/09/2024 10:11 AM RESIDENT PHYSICIAN Respiratory Rate 15 07/09/2024 10:11 AM RESIDENT PHYSICIAN Oxygen Saturation 96% 07/09/2024 10:11 AM RESIDENT PHYSICIAN Inhaled Oxygen Concentration - - Weight 52.2 kg (115 lb) 07/09/2024 10:11 AM RESIDENT PHYSICIAN Height 152.4 cm (5') 03/13/2022 10:17 AM CDT Body Mass Index 22.46 03/13/2022 10:17 AM CDT Plan of Treatment Upcoming Encounters Date Type Department Care Team (Late st Contact Info) Description 11/09/2024 11:00 AM CDT Office Visit [facility] Oncology and Hematology - Ja [address] [facility] [address] [place] [address] Yusef Tariq MD [address] [facility] [address] [place] [address] Health Maintenance Due Date Last Done Comments DTAP/TDAP/TD VACCINES (1 - Tdap) 1964 PNEUMOCOCCAL VACCINE 50+ YEARS (1 of 2 - PCV) 11/27/18 67 ZOSTER VACCINE (1 of 2) 1996 OSTEOPOROSIS SCREENING 11/28/2011 RSV VACCINE (60+ or ) (1 - 1-dose 75+ series) 2021 INFLUENZA VACCINE (#1) 2023 Insurance Care Teams Airline Reservation Agent Relationship Specialty Start Date End Date Kirit Keys MD [address] [facility] [address] [place] [address] PCP - General Family Practice 02/05/17
[2024-10-22 09:59] LABS: Hematocrit 45.3 % (37.0-47.0); Hemoglobin 13.4 g/dL (12.0-15.0)
[2024-10-22 10:10] LABS: Alanine Aminotransferase 16 U/L (6-35); Alkaline Phosphatase 54 U/L (38-126); Amylase 106 U/L (30-110); Aspartate Amino Transferase 35 U/L (14-36); Bilirubin Direct 0.1 mg/dL (0-0.3); Bilirubin,Total 0.4 mg/dL (0.2-1.3); Lipase 97 U/L (23-300); Total Protein 6.7 g/dL (6.3-8.2)
[2024-10-22 10:11] LABS: Anion Gap 6 mmol/L (4-12); Blood Urea Nitrogen 18 mg/dL (7-17); Calcium 9.9 mg/dL (8.4-10.2); Carbon Dioxide 28 mmol/L (22-30); Chloride 102 mmol/L (98-107); Estimated Glomerular Filt Rate 46; Glucose 103 mg/dL (65-110); Potassium 4.3 mmol/L (3.4-5.0); Prothrombin Time 13.2 Seconds (11.1-14.7); Sodium 136 mmol/L (137-145)
== END 2024-10-22 08:55 | disposition home or self-care (01) ==
LOC: ANHSURGERY 08:59
PROVIDERS: Anesthesiology; PCP Family Medicine; Visit Provider Surgery
DX: Z01.818 Encounter for other preprocedural examination (principal); R94.31 Abnormal electrocardiogram [ECG] [EKG]; I12.9 Hypertensive chronic kidney disease with stage 1 through stage 4 chronic kidney disease, or unspecified chronic kidney disease; N18.32 Chronic kidney disease, stage 3b; K80.20 Calculus of gallbladder without cholecystitis without obstruction; D45 Polycythemia vera
CPT/HCPCS: 36415; 80048; 80076; 82150; 83690; 85014; 85018; 85610; 85730; 93005

== ENCOUNTER 2024-11-01 01:12 | Day surgery (SDC) | payer OTHER, SELFPAY ==
[2024-10-20 14:57] VITALS: BMI 21.7
--- NOTE | 2024-10-20 15:35 | PC.NURSE ---
Report to the Outpatient Waiting Room, entrance under the green pavilion located off [facility], at time __11:00AM____ on date ___11/01/24____. Planned Procedure Time: ___1:00PM____.? Time changes happen often and if your time is changed the preop area will call you the afternoon before. - You and your visitor will be asked to self-screen and do not enter if you have any COVID symptoms. Please call surgeon if you need to reschedule. - A mask is optional within the hospital at this time. Patients may have clear liquids (water, carbonated beverages, clear teas, apple juice) until 3 hours prior to surgery (10:00AM) with a maximum of 20 ounces. - No food from midnight until time of surgery and no smoking, or chewing tobacco (or any form of nicotine). No chewing gum, candy or mints. Take only the following medications with a SIP of water on the morning of surgery: ___LEVOTHYROXINE. INHALER NEEDED. DO NOT STOP ANY OF YOUR OTHER PRESCRIPTION MEDICATIONS PRIOR TO SURGERY EXCEPT THE FOLLOWING Hold all vitamins and supplements for 3 days per anesthesiologist. LAST DOSE 10/28/24. Medications to discontinue per physician __DECREASE ASPIRIN 325MG TABLET TO 81MG TABLET 7 DAYS PRE-OP PER DR SERRANO. Date to take last dose_OF ASPIRIN 325MG IS 10/24/24. Please no make-up, nail icelandic, hairspray, perfume, deodorant, or body powder the day of surgery.? No jewelry (including any body piercings) or valuables the day of surgery, leave them at home.? Please take a shower or bath the night before, or the morning of, surgery with an antibacterial soap.? Wear comfortable, loose fitting clothing.? - Jewelry must be removed prior to entering the operating room.? Rings and piercings that are not removed may be cut off. - The hospital will not accept responsibility for valuables.? - Please leave all valuables, including medications, at home the day of surgery. If you are going home after surgery, a licensed front end driver must drive you home.? - NO public transportation without another adult if you receive anesthesia. - We recommend that an adult stay with you for 24 hours following discharge. - We also recommend that you do not drive, make important decision, drink alcoholic beverages, or take any drugs that were not prescribed by your health care provider for at least 24 hours after your discharge time. Follow any additional instructions given to you from your surgeon. Telephone instructions given to ___PATIENT and asked if any additional questions and then verbalized understanding. Patient advised to call surgeon office or pre surgery nurse liaison [phone] if any additional questions.
[2024-11-01] VITALS (10 sets, daily range): BP systolic 91–135; BP diastolic 39–72; PULSE 80–95; RESP 14–20; TEMP 36.2–37.2; O2SAT 93–100
--- OUTSIDE RECORDS SUMMARY | 2024-11-01 01:15 | XMS_ITS | Clinical Summary ---
Author Organization [facility] Address [address] [place] [address] Care Team Providers Care Orthotics Assistant Name Role Phone Kirit Keys MD Primary Care Provider [phone] Allergies Active Allergy Reactions Criticality Noted Date [...] tablet Take 75 mcg by mouth daily ssis architect. Active allopurinoL (ZYLOPRIM) 300 mg tablet Take [...] Comments Blood Pressure 123/69 07/09/2024 10:11 AM BEVELLER OPERATOR Pulse 89 07/09/2024 10:11 AM BEVELLER OPERATOR Temperature 36.6 C (97.8 F) 07/09/2024 10:11 AM BEVELLER OPERATOR Respiratory Rate 15 07/09/2024 10:11 AM BEVELLER OPERATOR Oxygen Saturation 96% 07/09/2024 10:11 AM BEVELLER OPERATOR Inhaled Oxygen Concentration - - Weight 52.2 kg (115 lb) 07/09/2024 10:11 AM BEVELLER OPERATOR Height 152.4 cm (5') 03/13/2022 10:17 AM CDT Body Mass Index 22.46 03/13/2022 10:17 AM CDT Plan of Treatment Upcoming Encounters Date Type Department Care Team (Late st Contact Info) Description 11/09/2024 11:00 AM CDT Office Visit [facility] Oncology and Hematology - Ja [address] [facility] [address] [place] [address] Yusef Tariq MD [address] [facility] [address] [place] [address] Health Maintenance Due Date Last Done Comments DTAP/TDAP/TD VACCINES (1 - Tdap) 1965 PNEUMOCOCCAL VACCINE 50+ YEARS (1 of 2 - PCV) 11/27/18 67 ZOSTER VACCINE (1 of 2) 1996 OSTEOPOROSIS SCREENING 11/28/2011 RSV VACCINE (60+ or ) (1 - 1-dose 75+ series) 2021 INFLUENZA VACCINE (#1) 2023 Insurance Care Teams Orthotics Assistant Relationship Specialty Start Date End Date Kirit Keys MD [address] [facility] [address] [place] [address] PCP - General Family Practice 02/05/17
[2024-11-01] MEDS: LACTATED RINGERS 1,000 ML 30 ML IV CONT ×2 (11:45→15:11)
[2024-11-01] MEDS: KETOROLAC 15 MG/ML VIAL (*BKC) IV PUSH (11:45)
[2024-11-01] MEDS: ACETAMINOPHEN 500 MG TABLET 1000 MG PO (11:45)
--- NOTE | 2024-11-01 13:02 | WPDHPUPDATE1 ---
History and Physical Update Update Date/Time: 11/01/24 13:02 History and Physical has been reviewed, including an updated exam of the patient. There are NO changes in the patient's condition. Risks, benefits, and alternatives have been discussed and questions answered. Patient agrees to proceed with procedure.
--- NOTE | 2024-11-01 13:37 | P.PNAN_ITS ---
Anes - Initial Pre Proc Eval Procedure: Operation Date: 11/01/24 13:00 Proposed Procedures p Laparoscopic Cholecystectomy, Possible Open - Prasad Ortega MD Date/Time: 11/01/24 13:37 Surgeon: Prasad Ortega MD Pre Op Diagnosis: Symp Cholelithiasis Patient Data Age: 78 Gender: F Height: 1.57 m Weight: 52.5 kg Last Vital Signs Temp 98.9 F 11/01/24 11:45 Pulse 80 11/01/24 11:45 Resp 14 11/01/24 11:45 BP 135/72 11/01/24 11:45 Pulse Ox 100 11/01/24 11:45 O2 Del Method Room Air 11/01/24 11:45 Allergies Allergy/AdvReac Type Severity Reaction Status Date / Time codeine Allergy Unknown Hives Verified 11/01/24 12:08 Penicillins Allergy Unknown Hives Verified 11/01/24 12:08 guaifenesin (From Mucinex) AdvReac Intermediate Dizziness Verified 11/01/24 12:08 Sulfa (Sulfonamide AdvReac Unknown Confusion Verified 11/01/24 12:08 Antibiotics) Home Medications ?Medication ?Instructions ?Recorded ?Confirmed ?Type aspirin 325 mg tablet 325 mg PO DAILY 12/20/19 10/20/24 History hydroxyurea 500 mg capsule 500 mg PO 5XW 08/06/22 10/20/24 History ondansetron 4 mg disintegrating 4 mg PO Q6H PRN nausea and 09/18/23 10/20/24 Rx tablet vomiting #30 tabs albuterol sulfate 90 mcg/actuation 1 puff inhalation Q4H PRN 01/26/24 10/20/24 Rx aerosol inhaler Shortness Of Breath #8.5 grams folic acid 1 mg tablet See Rx Instructions .Route 02/18/24 10/20/24 Rx .COMPLEX #90 tabs esomeprazole magnesium 40 mg 40 mg PO DAILY 1 month #30 caps 02/19/24 10/20/24 Rx capsule,delayed release (Nexium) atorvastatin 20 mg tablet (Lipitor) 20 mg PO DAILY #90 tabs 05/14/24 10/20/24 Rx levothyroxine 75 mcg tablet See Rx Instructions .Route 05/14/24 11/01/24 Rx .COMPLEX #90 tabs fenofibrate 160 mg tablet See Rx Instructions .Route 05/18/24 10/20/24 Rx .COMPLEX #90 tabs amlodipine 10 mg tablet See Rx Instructions .Route 08/09/24 10/20/24 Rx .COMPLEX #90 tabs lisinopril 40 mg tablet See Rx Instructions .Route 08/09/24 10/20/24 Rx .COMPLEX #90 tabs dicyclomine 10 mg capsule See Rx Instructions .Route 08/12/24 10/20/24 Rx .COMPLEX #360 caps esomeprazole magnesium 40 mg 40 mg PO BID 1 month #60 caps 10/06/24 10/20/24 Rx capsule,delayed release (Nexium) aspirin 81 mg tablet,delayed 81 mg PO DAILY 10/20/24 11/01/24 History release (Adult Low Dose Aspirin) fluticasone 250 mcg-salmeterol 50 1 inh inhalation Q12H PRN 10/20/24 10/20/24 History mcg/dose blistr powdr for shortness of breath or wheezing inhalation (Wixela Inhub) Patient hx anesthesia problems: none Family hx anesthesia problems: none Results Review: All pre-operative results and documents have been reviewed as part of the pre- operative evaluation. [facility] Past Medical History Medical History (Updated 10/13/24 @ 15:45 by Nallely Rhodes) Irritable bowel syndrome (IBS) Cancer Allergies Right sided abdominal pain Elevated fecal calprotectin Cholelithiasis Gastroparesis Delayed gastric emptying Esophageal ring Barretts esophagus Nausea and vomiting Dysphagia Esophagitis Nausea and vomiting in adult COPD (chronic obstructive pulmonary disease) Acquired hypothyroidism CKD (chronic kidney disease) HTN (hypertension) Family History Family History Mother Carcinoma of colon Father Family history of lung cancer Social History Social History (Updated 10/13/24 @ 14:59 by Dang Serrano MA) Social History: Single Smoking status: Never smoker Second hand tobacco smoke exposure: Yes Alcohol intake: never Substance use: never Substance use type: does not use Do You Feel Safe in your Home?: Yes Lack of Transportation: No Lack of Food: Never True Current Housing: I Have Housing Concerned About Future Housing: No Difficulty Paying Gas/Electric Bills: No Difficulty Paying for Meds: No Currently Unemployed: No Education: High School Diploma/GED Difficulty w/ Childcare or Family Care: No Living arrangements: alone Occupation/Education: retired Gender identity (if verbalized by the patient): Female Sexual Orientation (if Verbalized by the Patient): Straight or Heterosexual Spiritual care concerns: No Anes - Eval Final PreProcedure Day of Procedure 11/01/24 13:37 Patient weight: normal Heart: regular rate and rhythm Lungs: clear to auscultation Airway: Mallampati scale class II Neurological: alert and oriented Last oral intake: >/= 8 hours ASA classification: III Emergent: no Anesthetic plan: proceed Anesthesia type and monitoring: general ETT and standard monitoring Results Review: All pre-operative results and documents have been reviewed as part of the pre- operative evaluation. Informed Consent: The patient's anesthetic plan and its attendant risks and benefits were discussed with the patient/family/POA. Questions were solicited and answers provided to the satisfaction of the patient/family/POA.
[2024-11-01] MEDS: ceFAZolin 2 GM/D5W 50 ML 2 GM/50 ML BAG IVPB (13:45)
--- NOTE | 2024-11-01 14:19 | S_PTH ---
PATIENT: Viviana Das LOC: [facility] U#:[id number] AGE/SX: 78/F ROOM: RE11/01/[address]: Prasad Ortega MD : 1945 BED: DIS: 11/01/2024 SPEC #: [id number] RECD: 11/02/24 07:46 STATUS: ALEX REQ #: [id number] CECY: 11/01/24 14:[address]: Prasad Ortega DEPT: [facility] Surgical RECD BY: Hugo Chapman ENTERED: 11/02/24 07:46 SP TYPE: Surgical OTHR DR: Kirit Keys MD Tissues: A - Gallbladder Procedures: Hematoxylin and Eosin Stain Gross and Microscopic Level 3
[2024-11-01] MEDS: BUPivacaine HCL 0.5% 10 ML AMP 30 ML INFILTRATE (14:23)
[2024-11-01] MEDS: LIDO 1%/EPINEPHRINE 1:100,000 20 ML VIAL 30 ML INFILTRATE (14:23)
--- NOTE | 2024-11-01 15:00 | PM.OP ---
Procedure Note - Brief Procedure Note - Brief Date of procedure: 11/01/24 Symp Cholelithiasis Post-op diagnosis: Other (Chronic cholecystitis secondary to cholelithiasis) Procedure performed: Laparoscopic cholecystectomy Surgeon: Prasad Ortega MD [employer] Manager: John LONDONO Anesthesia: GETA Implants: none Estimated blood loss (mL): 15 Drains: No Packing: No Pathology: Yes ( gallbladder and contents sent to pathology) Complications: No immediate complications Condition: Stable Disposition: PACU
[2024-11-01] MEDS: ONDANSETRON INJ 4 MG/2 ML VIAL IV PUSH (16:41)
--- NOTE | 2024-11-02 09:30 | W.PM.PROC2 ---
Procedure Note - Detailed Date of Procedure 11/02/24 Pre-op Diagnosis Symp Cholelithiasis Post-op Diagnosis Other (Chronic cholecystitis secondary to cholelithiasis) Procedure Performed Laparoscopic cholecystectomy Surgeon Prasad Ortega MD [employer] BRY [facility] Anesthesia General Indications Patient is a 78-year-old female who has been having chronic intermittent issues with right upper quadrant pain and nausea especially with eating. Abdominal sounds so gallstones. Findings Patient chronic inflammation of the gallbladder with mildly thickened gallbladder wall but no acute edema the gallbladder wall or pericholecystic fluid. A single gallstone was palpated in the gallbladder when it was removed. Gallbladder and gallstones sent to pathology. Description of Procedure After informed consent was obtained patient brought to the operating room she was placed supine position and general endotracheal anesthesia was administered. The abdomen was then prepped and draped usual sterile fashion. A time-out was then performed correctly identifying the patient as well as procedure to be performed. She was given perioperative IV antibiotics. I entered the abdomen left upper quadrant utilizing a 5mm Optiview port. Once inside the abdomen insufflated to adequate pneumoperitoneum of 15mmHg of CO2. The view of the area around the umbilicus showed no adhesions. I then placed a 5mm Optiview port in the periumbilical region. Looking into the epigastric region of the abdomen the gallbladder was mildly thickened but no acute inflammatory change the gallbladder were seen. There was a single adhesion of the omentum to the gallbladder wall. I then placed additional trocar ports to include a 10mm epigastric trocar port as well as to right subcostal 5mm trocar ports. The gallbladder was then held the gallbladder dome and elevated. The omental adhesion was bluntly stripped off of the infundibular gallbladder. A 2nd grasper was then used to hold the gallbladder at the infundibulum and with lateral traction on infundibular proceed to strip down the visceral peritoneum off of the gallbladder wall to identify the cystic duct. Cystic duct was then dissected out circumferentially. The cystic artery was identified and dissected out circumferentially as well. Posterior wall the gallbladder at the infundibulum dissected free liver into the critical view was obtained. At this point I then placed 2 clips proximally cystic duct and 2 clips distally high on the infundibulum of the gallbladder. Cystic duct was then divided Endo Deena. In a similar fashion cystic artery clipped and divided as well. The gallbladder was then resected off the liver utilized electrocautery. Once the gallbladder was freed from the liver is placed into an Endo-Catch bag and brought out through the epigastric port site. The gallbladder is palpated has single gallstone within it. The gallbladder and gallstones were sent to pathology for examination. I then irrigated the right upper quadrant abdomen gallbladder fossa with sterile saline solution. Hemostasis was good. There is no evidence of bile leak. I then aspirated the fluid from the right upper quadrant the abdomen from the pelvis. I then removed all the trocar ports under direct visualization all port sites appeared hemostatic. The abdomen then decompressed. I then irrigated the port sites sterile saline solution hemostasis was good. I then closed the epigastric 10mm trocar port fascial defect utilizing 0 Vicryl suture at the fascial level. The skin edges were then approximated in all incisions utilizing a running subcuticular 4-0 Monocryl suture. The incisions were then cleaned the skin glue was applied. The patient tolerated the procedure well no complications. All sponges, needles, and instrument counts were correct at the end procedure. EBL was _15__cc. The patient was awakened and taken to recovery in stable and satisfactory condition. Implants None Estimated Blood Loss 15 Drains No Packing No Pathology Yes ( gallbladder and gallstones to pathology) Complications No immediate complications Condition Stable Disposition PACU [facility] Billing Surgery - Charge Forward: Surgery Billing
== END 2024-11-01 17:15 | disposition home or self-care (01) ==
PROVIDERS: PCP Family Medicine; Visit Provider Surgery
PROC: 0FT44ZZ Resection of Gallbladder, Percutaneous Endoscopic Approach (ICD-10-PCS; CPT 47562; principal; 2024-11-01 13:00)
DX: K80.10 Calculus of gallbladder with chronic cholecystitis without obstruction (principal)
CPT/HCPCS: 47562; 88304; A9270; J0690; J1885; J2003; J2004; J2405; J2704; J3010; J7120